=== PATIENT | male | born 1945 | race Caucasian/White ===

== ENCOUNTER 2017-07-17 19:35 | Observation (INO) | payer OTHER, BC ==
[~2017-07-17] VITALS: Ht 172.7 cm; Wt 64.2 kg
[~2017-07-17 19:35] MED LIST: ACET325T96 PO; ASPI-232 PO; ATOR-26 PO; CHOL100010 PO; CLOP1TAB15 PO; CRG3125 PO; LISI-729 PO; NTRGSL4 SL; OMEG10007 PO; PANT40TA PO
--- NOTE | 2017-07-17 20:17 | EMERGENCY ROOM VISIT NOTE ---
History Report prepared by Luis Ablertoibrafael: Leslie Banuelos Under the Supervision of: Dr. Luis Enrique Burden D.O. First contact with patient: 19:48 Chief Complaint: CONFUSION Stated Complaint: CONFUSED EARLIER TODAY Nursing Triage Summary: Acute confusion at 1300, last 15-20 minutes without reccurance. Denies vision problems, weakness, numbness, gait abnormality during this time. Currently asymptomatic, no recent illnesses. History of Present Illness The patient is a 71 year old male who presents to the Emergency Room with complaints of an episode of confusion occurring this afternoon. The patient was doing work when he had difficulty thinking and recalling things. He notes he had trouble recalling passwords or remembering files where he had information which is abnormal for him. After the episode, he took a 15 minute break before trying to read the newspaper. Fifteen minutes after the episode, he had no difficulty reading the newspaper. Later in the afternoon, the patient was a referee for a soccer game, where he with no difficulty or reoccurrences of confusion. The patient believes he had a stroke. He notes loose bowels for the past two days which occurs periodically at baseline for him. Pt denies headache , change in vision, fevers, chest pain, weakness, numbness, vision changes, shortness of breath, nausea, vomiting, diarrhea, pain with urination, and melena. The patient has a history of a heart attack. Source of History: patient Onset: this afternoon Position: other (generalized) Quality: other (confusion) Timing: other (episode) Associated Symptoms: No headache, No chest pain, No SOB, No nausea, No vomiting, No urinary symptoms, No weakness, No numbness Note: Pt denies any vision changes. Review of Systems See HPI for pertinent positives & negatives. A total of 10 systems reviewed and were otherwise negative. Past Medical & Surgical Medical Problems: (1) Altered mental status (2) No Known Active Medical Problems Surgical Problems: (1) History of appendectomy (2) History of tonsillectomy (3) History of vasectomy Family History Cancer Heart disease Lung disease Social History Smoking Status: Never Smoker Alcohol Use: occasionally Marital Status: Housing Status: lives with significant other Occupation Status: retired Current/Historical Medications Scheduled Aspirin (Aspir-81), 81 MG PO DAILY Atorvastatin (Atorvastatin Calcium), 20 MG PO DAILY Carvedilol (Carvedilol), 3.125 MG PO BID Cholecalciferol (Vitamin D), 1,000 INTER.UNIT PO DAILY Cimetidine (Cimetidine), 200 MG PO BID Fish Oil ([place]-3), 500 MG PO DAILY Losartan Potassium (Losartan Potassium), 25 MG PO DAILY Scheduled PRN Nitroglycerin (Nitrostat), 0.4 MG SL UD PRN for Chest Pain Allergies Coded Allergies: No Known Allergies (Unverified , 07/17/17) Physical Exam Vital Signs Date Time Temp Pulse Resp B/P (MAP) Pulse Ox O2 Delivery O2 Flow Rate FiO2 07/18/17 00:44 64 07/17/17 23:07 137/85 07/17/17 23:05 62 98 07/17/17 22:50 64 20 100 07/17/17 22:35 63 20 96 07/17/17 22:20 62 12 99 07/17/17 22:15 67 18 99 07/17/17 22:01 165/103 07/17/17 22:00 68 15 98 07/17/17 21:40 68 26 07/17/17 21:31 165/103 07/17/17 21:25 69 24 07/17/17 21:10 69 15 07/17/17 21:01 123/81 07/17/17 20:55 55 13 07/17/17 20:47 141/85 07/17/17 20:35 56 16 99 07/17/17 20:20 59 100 Room Air 07/17/17 20:09 64 07/17/17 20:01 115/69 07/17/17 19:37 36.6 67 16 164/76 100 Room Air Physical Exam GENERAL: alert, well appearing, well nourished, no distress, non-toxic EYE EXAM: normal conjunctiva, PERRL and EOM's grossly intact OROPHARYNX: no exudate, no erythema, lips, buccal mucosa, and tongue normal and mucous membranes are moist NECK: supple, no nuchal rigidity, no adenopathy, non-tender LUNGS: Clear to auscultation. Normal chest wall mechanics HEART: no murmurs, S1 normal and S2 normal ABDOMEN: abdomen soft, non-tender, normo-active bowel sounds, no masses, no rebound or guarding. BACK: Back is symmetrical on inspection and there is no deformity, no midline tenderness, no CVA tenderness. SKIN: no rashes and no bruising UPPER EXTREMITIES: upper extremities are grossly normal. LOWER EXTREMITIES: No pitting edema. NEURO EXAM: Normal sensorium, cranial nerves II-XII intact, normal speech, no weakness of arms, no weakness of legs. No drift. Finger to nose intact. Sensation intact. Rapid alternating movements of upper extremities intact. Medical Decision & Procedures ER Provider Diagnostic Interpretation: Radiology results as stated below per my review and the radiologist's interpretation: SINGLE VIEW CHEST FINDINGS: An AP, portable, upright chest radiograph is compared to study dated 09/15/2014. The examination is degraded by portable technique and patient rotation. The patient is status post midline sternotomy. The heart is enlarged and there is atherosclerotic calcification of the thoracic aorta. The pulmonary vasculature is noncongested. Chronic obstructive thickening is similar to previous. No airspace consolidation or pleural effusion is identified. No pneumothorax is seen. The skeletal structures are osteopenic. The bony thorax is grossly intact. IMPRESSION: Cardiomegaly with no acute cardiopulmonary abnormality. Electronically signed by: Jamie Galaviz M.D. CT SCAN OF THE BRAIN WITHOUT IV CONTRAST FINDINGS: Brain parenchyma: There are age-related involutional changes noting mild subcortical and periventricular microangiopathic change. There is no hemorrhage, mass effect, or evidence of acute territorial ischemia by CT criteria. Gutierrez-white matter is preserved. No extra-axial fluid collection is seen. Ventricles, sulci, cisterns: Prominent secondary to involutional change. Intracranial vasculature: There is atherosclerotic calcification of the cavernous carotid and vertebral arteries. Calvarium: Unremarkable. Sinuses and mastoids: The visualized paranasal sinuses are clear. The mastoid air cells are well pneumatized. Orbits: The bony orbits are grossly intact. There are bilateral ocular lens implants. IMPRESSION: There is no hemorrhage, mass effect, or evidence of acute territorial ischemia by CT criteria. Electronically signed by: Jamie Galaviz M.D. Laboratory Results 07/17/17 20:27 Red Blood Count 4.68, Mean Corpuscular Volume 86.5, Mean Corpuscular Hemoglobin 28.8, Mean Corpuscular Hemoglobin Concent 33.3, Mean Platelet Volume 10.4, Neutrophils (%) (Auto) 53.0, Lymphocytes (%) (Auto) 36.9, Monocytes (%) (Auto) 8.9, Eosinophils (%) (Auto) 0.8, Basophils (%) (Auto) 0.1, Neutrophils # (Auto) 4.79, Lymphocytes # (Auto) 3.33, Monocytes # (Auto) 0.80, Eosinophils # (Auto) 0.07, Basophils # (Auto) 0.01 07/17/17 20:27 Test 07/17/17 20:27 07/17/17 21:45 White Blood Count 9.03 K/uL (4.8-10.8) Red Blood Count 4.68 M/uL (4.7-6.1) Hemoglobin 13.5 g/dL (14.0-18.0) Hematocrit 40.5 % (42-52) Mean Corpuscular Volume 86.5 fL (80-100) Mean Corpuscular Hemoglobin 28.8 pg (25-34) Mean Corpuscular Hemoglobin Concent 33.3 g/dl (32-36) Platelet Count 197 K/uL (130-400) Mean Platelet Volume 10.4 fL (7.4-10.4) Neutrophils (%) (Auto) 53.0 % Lymphocytes (%) (Auto) 36.9 % Monocytes (%) (Auto) 8.9 % Eosinophils (%) (Auto) 0.8 % Basophils (%) (Auto) 0.1 % Neutrophils # (Auto) 4.79 K/uL (1.4-6.5) Lymphocytes # (Auto) 3.33 K/uL (1.2-3.4) Monocytes # (Auto) 0.80 K/uL (0.11-0.59) Eosinophils # (Auto) 0.07 K/uL (0-0.5) Basophils # (Auto) 0.01 K/uL (0-0.2) RDW Standard Deviation 41.7 fL (36.4-46.3) RDW Coefficient of Variation 13.1 % (11.5-14.5) Immature Granulocyte % (Auto) 0.3 % Immature Granulocyte # (Auto) 0.03 K/uL (0.00-0.02) Anion Gap 6.0 mmol/L (3-11) Est Creatinine Clear Calc Drug Dose 46.6 ml/min Estimated GFR () 63.2 Estimated GFR (Non- 54.5 BUN/Creatinine Ratio 14.7 (10-20) Calcium Level 8.9 mg/dl (8.5-10.1) Magnesium Level 2.1 mg/dl (1.8-2.4) Total Bilirubin 0.6 mg/dl (0.2-1) Direct Bilirubin 0.2 mg/dl (0-0.2) Aspartate Amino Transf (AST/SGOT) 24 U/L (15-37) Alanine Aminotransferase (ALT/SGPT) 22 U/L (12-78) Alkaline Phosphatase 133 U/L (45-117) Troponin I < 0.015 ng/ml (0-0.045) Total Protein 6.7 gm/dl (6.4-8.2) Albumin 3.7 gm/dl (3.4-5.0) Thyroid Stimulating Hormone (TSH) 5.640 uIu/ml (0.300-4.500) Free Thyroxine 0.94 ng/dl (0.80-1.60) Urine Color YELLOW Urine Appearance CLEAR (CLEAR) Urine pH 7.0 (4.5-7.5) Urine Specific [place] 1.005 (1.000-1.030) Urine Protein NEG (NEG) Urine Glucose (UA) NEG (NEG) Urine Ketones NEG (NEG) Urine Occult Blood NEG (NEG) Urine Nitrite NEG (NEG) Urine Bilirubin NEG (NEG) Urine Urobilinogen NEG (NEG) Urine Leukocyte Esterase NEG (NEG) Urine WBC (Auto) 0 /hpf (0-5) Urine RBC (Auto) 0-4 /hpf (0-4) Urine Hyaline Casts (Auto) 0 /lpf (0-5) Urine Epithelial Cells (Auto) 5-10 /lpf (0-5) Urine Bacteria (Auto) NEG (NEG) Laboratory results per my review. ECG Indication: other (confusion) Rate (beats per minute): 61 Rhythm: sinus rhythm Findings: Q waves (Anterior and spetal), T-wave inversion (Anterior and septal) , left axis deviation Comparison ECG Date: 09/15/14 Change: Inverted T-wave new ED Course ED COURSE: Vital signs were reviewed and showed hypertensive The patients medical record was reviewed The above diagnostic studies were performed and reviewed. ED treatments and interventions as stated above. 2004: The patient was evaluated in room B7. A complete history and physical examination was performed. 2223: Upon reevaluation, the patient is resting. I discussed the findings and the treatment plan with the patient. He expresses agreement and understanding. [facility] The patient will be evaluated for further management. Based on the patients age, coexisting illnesses, exam and lab findings the decision to treat as an inpatient was made. The patient remained stable while under my care. The patient will be evaluated for further management. Medical Decision Differential diagnoses includes but is not limited to toxic, metabolic, infectious, traumatic, cardiac, neurologic, hematologic, psychiatric and inflammatory etiologies. Patient is a 71-year-old male that presents to ER for a 15 minute episode of confusion. He has trouble explaining what exactly occurred but he notes he could not remember things that he typically could. He noticed no focal deficit. He was able to read without difficulty. CBC able BMP, LFTs, bilirubin and troponin were unremarkable. EKG was reviewed and did show new flipped T waves. Patient denied any chest pain. CT head was unremarkable. Chest x-ray unremarkable. I did not believe that this was a TIA. With the EKG changes and his history I felt it was reasonable to observe him overnight. Discussed with internal medicine and they agreed. Medication Reconcilliation Current Medication List: was personally reviewed by me Blood Pressure Screening Patient's blood pressure: Elevated blood pressure Blood pressure disposition: Elevated BP felt to be situational Consults Time Called: 2219 Consulting Physician: Dr. Jj Returned Call: 2222 I reviewed the patient's case with Dr. Jj. He will evaluate the patient for further management. Impression Primary Impression: Confusion Additional Impression: EKG changes Scribe Attestation The scribe's documentation has been prepared under my direction and personally reviewed by me in its entirety. I confirm that the note above accurately reflects all work, treatment, procedures, and medical decision making performed by me. Departure Information Dispostion Being Evaluated By Hospitalist Referrals Jaleel Lowe III, M.D. (PCP) Patient Instructions My [facility] Problem Qualifiers
[2017-07-17] MEDS ORDERED: CZR25 PO (20:23)
[2017-07-17] MEDS ORDERED: CARV3.122 PO (20:23)
[2017-07-17] MEDS ORDERED: LPT/20 PO (20:23)
[2017-07-17] MEDS ORDERED: CIME200T4 PO (20:23)
[2017-07-17 20:36] LABS: BASO % 0.1 %; BASO ABS # 0.01 K/uL (0-0.2); COMPLETE YES; EOS % 0.8 %; HEMATOCRIT 40.5 % (42-52); IG% 0.3 %; LYMPH % 36.9 %; LYMPH ABS # 3.33 K/uL (1.2-3.4); MEAN CELL VOLUME 86.5 fL (80-100); MEAN CORPUSCULAR HEMOGLOBIN 28.8 pg (25-34); MEAN CORPUSCULAR HGB CONC 33.3 g/dl (32-36); MEAN PLATELET VOLUME 10.4 fL (7.4-10.4); MONO % 8.9 %; PLATELET COUNT 197 K/uL (130-400); RED BLOOD COUNT 4.68 M/uL (4.7-6.1); WHITE BLOOD COUNT 9.03 K/uL (4.8-10.8)
--- NOTE | 2017-07-17 20:53 | DIAGNOSTIC IMAGING REPORT ---
CT SCAN OF THE BRAIN WITHOUT IV CONTRAST CLINICAL HISTORY: Change in mental status. COMPARISON STUDY: No priors. TECHNIQUE: Unenhanced axial CT scan of the brain is performed from the vertex to the skull base. CT DOSE: 712.55 mGy.cm FINDINGS: Brain parenchyma: There are age-related involutional changes noting mild subcortical and periventricular microangiopathic change. There is no hemorrhage, mass effect, or evidence of acute territorial ischemia by CT criteria. Gutierrez-white matter is preserved. No extra-axial fluid collection is seen. Ventricles, sulci, cisterns: Prominent secondary to involutional change. Intracranial vasculature: There is atherosclerotic calcification of the cavernous carotid and vertebral arteries. Calvarium: Unremarkable. Sinuses and mastoids: The visualized paranasal sinuses are clear. The mastoid air cells are well pneumatized. Orbits: The bony orbits are grossly intact. There are bilateral ocular lens implants. IMPRESSION: There is no hemorrhage, mass effect, or evidence of acute territorial ischemia by CT criteria. Electronically signed by: Jamie Galaviz M.D. 07/17/2017 8:52 PM Dictated Date/Time: 07/17/2017 8:50 PM
[2017-07-17 21:01] LABS: ALT/SGPT 22 U/L (12-78); BLOOD UREA NITROGEN 19 mg/dl (7-18); BUN/CREATININE RATIO 14.7 (10-20); CALCIUM 8.9 mg/dl (8.5-10.1); CARBON DIOXIDE 29 mmol/L (21-32); CHLORIDE 105 mmol/L (98-107); GLUCOSE 88 mg/dl (70-99); POTASSIUM 4.6 mmol/L (3.5-5.1); SODIUM 140 mmol/L (136-145)
[2017-07-17 21:08] LABS: ALKALINE PHOSPHATASE 133 U/L (45-117); AST/SGOT 24 U/L (15-37)
--- NOTE | 2017-07-17 21:26 | DIAGNOSTIC IMAGING REPORT ---
SINGLE VIEW CHEST CLINICAL HISTORY: Strokelike symptoms. FINDINGS: An AP, portable, upright chest radiograph is compared to study dated 09/15/2014. The examination is degraded by portable technique and patient rotation. The patient is status post midline sternotomy. The heart is enlarged and there is atherosclerotic calcification of the thoracic aorta. The pulmonary vasculature is noncongested. Chronic obstructive thickening is similar to previous. No airspace consolidation or pleural effusion is identified. No pneumothorax is seen. The skeletal structures are osteopenic. The bony thorax is grossly intact. IMPRESSION: Cardiomegaly with no acute cardiopulmonary abnormality. Electronically signed by: Jamie Galaviz M.D. 07/17/2017 9:25 PM Dictated Date/Time: 07/17/2017 9:24 PM
[2017-07-17 22:23] LABS: URINE APPEARANCE CLEAR (CLEAR); URINE BILIRUBIN NEG (NEG); URINE COLOR YELLOW; URINE NITRITE NEG (NEG); URINE SPECIFIC GRAVITY 1.005 (1.000-1.030); UROBILINOGEN NEG (NEG); ZZUR CULT IF INDIC CLEAN CATCH NO
[2017-07-17 22:24] LABS: MANUAL MICROSCOPIC REQUIRED? NO; REVIEW REQ? NO
[2017-07-17 23:22] LABS: MAGNESIUM 2.1 mg/dl (1.8-2.4)
[2017-07-18] MEDS ORDERED: ATORVASTATIN 20 MG TAB PO ONE (01:03)
[2017-07-18] MEDS ORDERED: CIMETIDINE 400 MG TAB PO ONE (01:03)
[2017-07-18] MEDS ORDERED: ONDANSETRON INJ 2 MG/ML 2 ML VIAL IV PRN (01:15)
[2017-07-18] MEDS ORDERED: LORAZEPAM 2 MG/ML 1 ML VIAL IV PRN (01:15)
[2017-07-18] MEDS ORDERED: ACETAMINOPHEN 325 MG TAB PO PRN (01:15)
[2017-07-18] MEDS ORDERED: NITROGLYCERIN 0.4 MG SL PER TAB CHARGE SL PRN ×2 (01:15)
[2017-07-18] MEDS ORDERED: OXYCODONE/ACETAMINOPHEN 5-325 TAB PO PRN (01:15)
[2017-07-18] MEDS ORDERED: SODIUM CHLORIDE 0.9% 500ML 500 ML IV ONE (02:30)
[2017-07-18 03:19] VITALS: BP 153/94; PULSE 61; TEMP 36.5; O2SAT 98; Ht 172.7 cm; Wt 64.2 kg
[2017-07-18] MEDS ORDERED: IV FLUIDS COMPLETED PRN (04:30)
--- NOTE | 2017-07-18 06:50 | DIAGNOSTIC IMAGING REPORT ---
MRI OF THE BRAIN WITHOUT CONTRAST CLINICAL HISTORY: transient amnesia COMPARISON STUDY: None. FINDINGS: Sagittal T1, axial diffusion, proton density and T2 weighted axial, coronal FLAIR, and axial T1-weighted images were acquired. No intra or extra-axial mass lesions are visualized Axial diffusion-weighted images reveal no evidence of acute or subacute infarction. There is no evidence of ventricular dilatation. Proton density T2-weighted and FLAIR images reveal scattered foci of increased T2 signal within the white matter, likely on a small vessel basis. There are no abnormal flow voids. IMPRESSION: 1. No acute intracranial findings 2. No evidence of acute or subacute infarction 3. No evidence of intracranial mass on this noncontrast study. Electronically signed by: Laz Richardson M.D. 07/18/2017 6:49 AM Dictated Date/Time: 07/18/2017 6:48 AM
[2017-07-18 07:03] LABS: BASO % 0.1 %; BASO ABS # 0.01 K/uL (0-0.2); COMPLETE YES; EOS % 1.4 %; HEMATOCRIT 43.1 % (42-52); IG% 0.2 %; LYMPH % 39.8 %; MEAN CELL VOLUME 86.4 fL (80-100); MEAN CORPUSCULAR HEMOGLOBIN 27.7 pg (25-34); MEAN PLATELET VOLUME 10.6 fL (7.4-10.4); MONO % 7.4 %; NEUT % 51.1 %; PLATELET COUNT 186 K/uL (130-400); RED BLOOD COUNT 4.99 M/uL (4.7-6.1); WHITE BLOOD COUNT 8.29 K/uL (4.8-10.8)
[2017-07-18 07:10] LABS: INR 0.9 (0.9-1.1); PROTHROMBIN TIME (PATIENT) 10.1 SECONDS (9.0-12.0)
--- NOTE | 2017-07-18 07:19 | DIAGNOSTIC IMAGING REPORT ---
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 TECHNIQUE: MR angiography of the head was performed without the use of intravenous contrast using 3-D [id number] technique. 3-D volumetric and/or maximum intensity projection (MIP) images were subsequently reconstructed for review. IV contrast: None.. COMPARISON: MR brain performed the same day. FINDINGS: Anterior circulation including the intracranial portions of the internal carotid arteries, anterior and middle cerebral arteries, and anterior communicating artery patent. Posterior circulation demonstrates a right dominant vertebral artery. Both vertebral arteries contribute to the basilar artery. Superior cerebellar and posterior cerebral arteries patent. origin of the right posterior cerebral artery. 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 No evidence of aneurysm, significant stenosis, or focal vessel occlusion. IMPRESSION: 1. No significant stenosis, aneurysm, or focal vessel occlusion. Electronically signed by: Ricardo Barnes M.D. 07/18/2017 7:18 AM Dictated Date/Time: 07/18/2017 7:11 AM
[2017-07-18 07:35] LABS: BLOOD UREA NITROGEN 17 mg/dl (7-18); BUN/CREATININE RATIO 15.2 (10-20); CARBON DIOXIDE 30 mmol/L (21-32); CHLORIDE 108 mmol/L (98-107); GLUCOSE 86 mg/dl (70-99); SODIUM 143 mmol/L (136-145)
[2017-07-18 07:52] VITALS: BP_SYST 127; BP_SYST 138; BP_SYST 150; BP_DIAS 77; BP_DIAS 81; BP_DIAS 85; PULSE 57; PULSE 59; PULSE 60; TEMP 36.5; O2SAT 99
[2017-07-18 08:05] VITALS: PULSE 64
--- NOTE | 2017-07-18 08:43 | HISTORY & PHYSICAL EXAMINATION ---
DATE OF ADMISSION: 07/18/2017 PRIMARY CARE DOCTOR: Dr. Lowe. CHIEF COMPLAINT: Confusion, forgetfulness. HISTORY OF PRESENT ILLNESS: History is obtained from the patient and records. Medical history is significant for chronic systolic heart failure secondary to ischemic cardiomyopathy, EF of 45% from 2D echo November 2014, status post CABG, hypertension, hyperlipidemia, history of LV thrombus as per records, chronic anemia (baseline hemoglobin of 13). Recent confinement last August 2014 for acute coronary syndrome. Patient was found to have triple vessel disease on cardiac cath. Patient was transferred to [facility] for [facility]G. Yesterday, the patient was working on stuff at home when he had difficulty thinking recalling things for about 15 minutes, could not recall passwords, etc. No previous episodes. No chest pain, no shortness of breath, no headache. Few days' history of loose stools, improving. No abdominal pain. Brought to the Emergency Room. MEDICAL HISTORY: As above. SURGERIES: He has had CABG, appendectomy, cataract surgery, tonsil removal, hernia surgery. HOME MEDICATIONS: Include, losartan, carvedilol, aspirin, loperamide, atorvastatin. ALLERGIES: No known drug allergies. FAMILY HISTORY: Heart disease. PERSONAL AND SOCIAL HISTORY: Nonsmoker, no chronic intake of alcoholic beverages, manages a farm. REVIEW OF SYSTEMS: As per HPI, all other ROS negative. PHYSICAL EXAMINATION: VITAL SIGNS: Blood pressure was initially 167/100 later 137/81, pulse rate 62, RR 20, temperature 36.6, sats 100 on room air. GENERAL: Noted to be comfortable, no respiratory distress. SKIN: Pallor. HEENT: Pale palpebral conjunctivae. Dry mucosa. NECK: No JVD. Supple. CHEST: Clear to auscultation. HEART: Regular rate and rhythm. ABDOMEN: Soft. EXTREMITIES: No edema, no tenderness. NEUROLOGIC: No gross focality. LABORATORY DATA: Hemoglobin was noted to be 13.5, platelets 187. Sodium 140, potassium 4.6, chloride 105, CO2 of 29, BUN 90, creatinine 1.3, glucose was noted to be 88. IMAGING DATA: CT of the head, no acute pathology. Chest x-ray showed cardiomegaly. EKG as per my interpretation, rate 60, normal sinus rhythm, LAD, LAFB LVH, also noted T-wave inversion on anterolateral leads. ASSESSMENT: 1. Transient forgetfulness rule out transient ischemic attack, atypical seizure. 2. Chronic systolic heart failure secondary to ischemic cardiomyopathy, EF of 40-45% (2015 TTE). The patient is euvolemic. 3. HTN, stable 4. Coronary artery disease status post coronary artery bypass surgery. 5. Chronic anemia, hemoglobin at baseline. PLAN: Observation PCU. MRI/MRA of brain. EEG Neurology consult RE transient forgetfulness Further eval and management as per Neurology. DVT prophylaxis with Lovenox subQ. Full code. MTDD
[2017-07-18] MEDS ORDERED: ENOXAPARIN 30 MG/0.3 ML SYR SC SCH (09:00)
[2017-07-18] MEDS ORDERED: CARVEDILOL 3.125 MG TAB PO SCH (09:00)
[2017-07-18] MEDS ORDERED: ASPIRIN 81 MG ECTAB PO SCH (09:00)
[2017-07-18] MEDS ORDERED: LOSARTAN POTASSIUM 25 MG TAB PO SCH (09:00)
[2017-07-18] MEDS ORDERED: CIMETIDINE 400 MG TAB PO SCH (09:00)
[2017-07-18 11:30] VITALS: BP 118/71; PULSE 57; TEMP 36.7; O2SAT 97
--- NOTE | 2017-07-18 14:31 | Neurology Consultation ---
Neurology Consultation Date of Consultation: Jul 18, 2017. Attending Physician: William Arce M.D. Primary Care Physician: Jaleel Lowe III, M.D. Reason for Consultation: transient amnesia History of Present Illness Source: patient, spouse, hospital records Sandra is a 71 year old male who has a PMH- CAD status post CABG, chronic systolic heart failure secondary to ischemic cardiomyopathy, post CABG-2004, HTN , DL, chronic anemia, baseline hemoglobin of 13. ACS 2013. He was at home yesterday and found it difficulty to remember his passwords and where to find documents in the computer. he went downstairs and was having a problem making a sandwich which he states he was slower. This episode lasted about 20 minutes and then completely resolved. he never had a episode like this in the past. 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 His wanted him to come to the hospital to be evaluated so he consented after the soccer games. denies CP, SOB, abdominal pain, sick confinement, N, V, slurred speech or swallow issues, falls, head injury, vision changes, tinnitus he does have but thats from known hearing loss. He is on a aspirin 81 mg daily. Past Medical/Surgical History Medical Problems: (1) Confusion Status: Acute Social History Smoking Status: Never smoker Marital Status: Housing Status: lives with significant other Occupation Status: retired Allergies Coded Allergies: No Known Allergies (Unverified , 07/17/17) Current Inpatient Medications Current Inpatient Medications Medications (Trade) Dose Ordered Sig/Nate Route Start Time Stop Time Status Last Admin Dose Admin Enoxaparin Sodium (Lovenox Inj) 30 mg Q24H SC 07/18/17 09:00 08/17/17 08:59 Acetaminophen (Tylenol Tab) 650 mg Q4H PRN PO 07/18/17 01:15 08/17/17 01:14 Nitroglycerin (Nitrostat Tab) 0.4 mg UD PRN SL 07/18/17 01:15 08/17/17 01:14 Aspirin (Ecotrin Tab) 81 mg DAILY PO 07/18/17 09:00 08/17/17 08:59 07/18/17 08:03 81 MG Atorvastatin Calcium (Lipitor Tab) 20 mg HS PO 07/18/17 21:00 08/17/17 20:59 Carvedilol (Coreg Tab) 3.125 mg BID PO 07/18/17 09:00 08/17/17 08:59 07/18/17 08:03 3.125 MG Losartan Potassium (coZAAR TAB) 25 mg DAILY PO 07/18/17 09:00 08/17/17 08:59 07/18/17 08:02 25 MG Cimetidine (Tagamet Tab) 200 mg BID PO 07/18/17 09:00 08/17/17 08:59 07/18/17 08:03 200 MG Ondansetron HCl (Zofran Inj) 4 mg Q6H PRN IV 07/18/17 01:15 08/17/17 01:14 Lorazepam (Ativan Inj) 0.5 mg Q4H PRN IV 07/18/17 01:15 08/17/17 01:14 Oxycodone/ Acetaminophen (Percocet 5-325mg Tab) 1 tab Q6H PRN PO 07/18/17 01:15 08/01/17 01:14 Miscellaneous (Iv Fluids Completed) 1 ea PRN PRN N/A 07/18/17 04:30 07/18/18 04:29 07/18/17 10:30 1 EA Physical Exam Vital Signs (Past 24 Hrs): Date Time Temp Pulse Resp B/P (MAP) Pulse Ox O2 Delivery O2 Flow Rate FiO2 07/18/17 12:00 Room Air 07/18/17 11:30 36.7 57 18 118/71 (87) 97 Room Air 07/18/17 08:05 64 07/18/17 08:00 Room Air 07/18/17 07:52 36.5 59 18 150/85 (106) 99 Room Air 60 138/77 (97) 57 127/81 (96) 07/18/17 03:19 36.5 61 16 153/94 98 Room Air 07/18/17 01:12 70 24 97 07/18/17 01:01 107/65 07/18/17 00:57 69 22 97 07/18/17 00:44 64 07/18/17 00:42 62 24 98 07/18/17 00:31 158/84 07/18/17 00:27 65 16 98 07/18/17 00:12 61 22 97 07/18/17 00:01 130/81 07/17/17 23:57 63 16 98 07/17/17 23:42 63 14 96 07/17/17 23:31 128/77 07/17/17 23:27 60 17 96 07/17/17 23:12 61 15 98 07/17/17 23:07 137/85 07/17/17 23:05 62 98 07/17/17 22:50 64 20 100 07/17/17 22:35 63 20 96 07/17/17 22:20 62 12 99 07/17/17 22:15 67 18 99 07/17/17 22:01 165/103 07/17/17 22:00 68 15 98 07/17/17 21:40 68 26 07/17/17 21:31 165/103 07/17/17 21:25 69 24 07/17/17 21:10 69 15 07/17/17 21:01 123/81 07/17/17 20:55 55 13 07/17/17 20:47 141/85 07/17/17 20:35 56 16 99 07/17/17 20:20 59 100 Room Air 07/17/17 20:09 64 07/17/17 20:01 115/69 07/17/17 19:37 36.6 67 16 164/76 100 Room Air Physical Exam: Constitutional: appearance nourished, healthy and normal Ears, Nose, Mouth and Throat: mucous membranes moist, no injection and skin normal, eyes normal Cardiovascular: normal S-1 and S-2 and regular rate and rhythm Respiratory: clear to auscultation (CTA) and no rales, rhonchi or wheeze Musculoskeletal: no peripheral edema and good distal pulses Skin: no stigmata of neurocutaneous disease noted and normal and intact Eyes: extraocular muscles intact (EOMI) and pupils equal, round and reactive to light (PERRL) NEUROLOGIC EXAMINATION: Mental status: Alert and interactive Oriented to full date and location, [facility], president T[place], 2017 Oriented to person Speech fluent with no evidence of aphasia Cranial Nerves smile eye brow raise symmetric, tongue midline Reflexes: Deep tendon reflexes were symmetrical and graded 2/5. Plantar responses were flexor. Sensory: light touch or cool touch Coordination: finger to nose without bi pass Gait/Stance: Posture normal. Gait normal: with steady with steps, base, turning, heel and toe walking and tandem gait. Motor: Negative for pronator drift of out stretched arms with eyes closed. Strength: biceps triceps hand college coach 5/5 bilaterally, hip flex plantar flex ext Laboratory Results Past 24 Hours: 07/18/17 06:37 Red Blood Count 4.99, Mean Corpuscular Volume 86.4, Mean Corpuscular Hemoglobin 27.7, Mean Corpuscular Hemoglobin Concent 32.0, Mean Platelet Volume 10.6, Neutrophils (%) (Auto) 51.1, Lymphocytes (%) (Auto) 39.8, Monocytes (%) (Auto) 7.4, Eosinophils (%) (Auto) 1.4, Basophils (%) (Auto) 0.1, Neutrophils # (Auto) 4.23, Lymphocytes # (Auto) 3.30, Monocytes # (Auto) 0.61, Eosinophils # (Auto) 0.12, Basophils # (Auto) 0.01 07/18/17 06:37 Test 07/17/17 20:27 07/17/17 21:45 07/18/17 06:37 07/18/17 12:32 Magnesium Level 2.1 mg/dl (1.8-2.4) Total Bilirubin 0.6 mg/dl (0.2-1) Direct Bilirubin 0.2 mg/dl (0-0.2) Aspartate Amino Transf (AST/SGOT) 24 U/L (15-37) Alanine Aminotransferase (ALT/SGPT) 22 U/L (12-78) Alkaline Phosphatase 133 U/L (45-117) Total Protein 6.7 gm/dl (6.4-8.2) Albumin 3.7 gm/dl (3.4-5.0) Thyroid Stimulating Hormone (TSH) 5.640 uIu/ml (0.300-4.500) Free Thyroxine 0.94 ng/dl (0.80-1.60) Urine Color YELLOW Urine Appearance CLEAR (CLEAR) Urine pH 7.0 (4.5-7.5) Urine Specific [place] 1.005 (1.000-1.030) Urine Protein NEG (NEG) Urine Glucose (UA) NEG (NEG) Urine Ketones NEG (NEG) Urine Occult Blood NEG (NEG) Urine Nitrite NEG (NEG) Urine Bilirubin NEG (NEG) Urine Urobilinogen NEG (NEG) Urine Leukocyte Esterase NEG (NEG) Urine WBC (Auto) 0 /hpf (0-5) Urine RBC (Auto) 0-4 /hpf (0-4) Urine Hyaline Casts (Auto) 0 /lpf (0-5) Urine Epithelial Cells (Auto) 5-10 /lpf (0-5) Urine Bacteria (Auto) NEG (NEG) White Blood Count 8.29 K/uL (4.8-10.8) Red Blood Count 4.99 M/uL (4.7-6.1) Hemoglobin 13.8 g/dL (14.0-18.0) Hematocrit 43.1 % (42-52) Mean Corpuscular Volume 86.4 fL (80-100) Mean Corpuscular Hemoglobin 27.7 pg (25-34) Mean Corpuscular Hemoglobin Concent 32.0 g/dl (32-36) Platelet Count 186 K/uL (130-400) Mean Platelet Volume 10.6 fL (7.4-10.4) Neutrophils (%) (Auto) 51.1 % Lymphocytes (%) (Auto) 39.8 % Monocytes (%) (Auto) 7.4 % Eosinophils (%) (Auto) 1.4 % Basophils (%) (Auto) 0.1 % Neutrophils # (Auto) 4.23 K/uL (1.4-6.5) Lymphocytes # (Auto) 3.30 K/uL (1.2-3.4) Monocytes # (Auto) 0.61 K/uL (0.11-0.59) Eosinophils # (Auto) 0.12 K/uL (0-0.5) Basophils # (Auto) 0.01 K/uL (0-0.2) RDW Standard Deviation 41.3 fL (36.4-46.3) RDW Coefficient of Variation 13.0 % (11.5-14.5) Immature Granulocyte % (Auto) 0.2 % Immature Granulocyte # (Auto) 0.02 K/uL (0.00-0.02) Prothrombin Time 10.1 SECONDS (9.0-12.0) Prothromb Time International Ratio 0.9 (0.9-1.1) Anion Gap 5.0 mmol/L (3-11) Est Creatinine Clear Calc Drug Dose 55.1 ml/min Estimated GFR () 77.3 Estimated GFR (Non- 66.7 BUN/Creatinine Ratio 15.2 (10-20) Calcium Level 9.0 mg/dl (8.5-10.1) Troponin I < 0.015 ng/ml (0-0.045) Imaging MRA head- No significant stenosis, aneurysm, or focal vessel occlusion. MRI brain without- No acute intracranial findings No evidence of acute or subacute infarction No evidence of intracranial mass on this noncontrast study. Impression 71 year old male with mental slowness and recall issues complex cardiac history Plan 1. TTE completed and cardiology aware of results. 2. no signs of CVA on MRI or occasion on MRA 3. no current PT/OT or speech therapy needs 4. could add plavix 75 mg for dual therapy will discuss with cardiology once echo is completed but for neurology perspective aspirin would be continued no need at this time for dual therapy further recommendations to follow I have seen and discussed above patient with Dr Jaleel Diaz, neurology Patient seen and interiewd and examined Imaging reports and images reviewed and the preliminary echo report reviewed event in question could have been a vascular event but if sow the deficits were transient and imaging shows no acute events or source for emboli other than the echo with the intraventricular mass with hypokinetic segment that could well be a clot Follow with cardiology is planned and in place and he is felt to be safe to discharge for now Suspect he may well end up on coumadin but unless he has more events that are not related or potentially related to the cardiomyopathy neurology does not need to see him regularly Jaleel Diaz MD
[2017-07-18] MEDS ORDERED: PERFLUTREN LIPID MICROSPHERE (DEFINITY) IV ONE (14:58)
--- NOTE | 2017-07-18 15:52 | DIAGNOSTIC IMAGING REPORT ---
ULTRASOUND OF THE CAROTID ARTERIES CLINICAL HISTORY: Presyncope. COMPARISON STUDY: No priors. TECHNIQUE: Real-time, grayscale, and color Doppler sonography of the carotid arteries is performed. Images are reviewed in the transverse and longitudinal planes. FINDINGS: Blood pressure in the right arm measures 119/76 and blood pressure in the left arm measures 124/75. The carotid arteries are patent bilaterally and demonstrate antegrade flow. There is minimal atherosclerotic plaque identified. Normal doppler arterial waveforms are seen throughout. Velocity measurements are listed below. Common carotid peak systolic velocity (cm/sec): RIGHT: 109 LEFT: 114 ICA proximal peak systolic velocity (cm/sec): RIGHT: 95 LEFT: 83 ICA mid peak systolic velocity (cm/sec): RIGHT: 73 LEFT: 77 ICA distal peak systolic velocity (cm/sec): RIGHT: 69 LEFT: 74 ICA/CC peak systolic ratio: RIGHT: 0.7 LEFT: 0.6 Antegrade flow was shown in the vertebral arteries. The external carotid arteries are patent. IMPRESSION: 1. There is no sonographic evidence of hemodynamically significant stenosis in the right or left carotid arterial system. 2. Antegrade flow is shown in the vertebral arteries. Electronically signed by: Jamie Galaviz M.D. 07/18/2017 3:50 PM Dictated Date/Time: 07/18/2017 3:49 PM
--- NOTE | 2017-07-18 16:06 | Progress Note ---
Internal Med Progress Note Date of Service: Jul 18, 2017. Provider Documentation: SUBJECTIVE: Since hospital admission: Denies changes in vision Denies headache Denies nausea Denies vomiting Denies chest pain Denies shortness of breath Denies abdominal pain Denies diarrhea Denies dysuria OBJECTIVE: PHYSICAL EXAMINATION: GENERAL: Noted to be comfortable, no respiratory distress. HEENT: normocephalic, atraumatic, EOMI, no facial muscle weakness NECK: No JVD. trachea midline CHEST: Clear to auscultation bilaterally HEART: Regular rate and rhythm. no appreciable murmurs audible. ABDOMEN: Soft. nontender. + bowel sounds EXTREMITIES: No edema, no tenderness. strength 5/5 throughout extremities NEUROLOGIC: No gross focality. ASSESSMENT & PLAN: Medical history is significant for CAD status post CABG, chronic systolic heart failure secondary to ischemic cardiomyopathy, EF of 40 to 45 % from 2D echo November 2014, history of LV thrombus as per records, chronic anemia, baseline hemoglobin of 13,hypertension, hyperlipidemia. 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 Denied motor or sensory deficits. Subsequently was able to attend soccer game without events.Came to the emergency room at the urging of family member. Hospital Course SINGLE VIEW CHEST FINDINGS: An AP, portable, upright chest radiograph is compared to study dated 09/15/2014. The examination is degraded by portable technique and patient rotation. The patient is status post midline sternotomy. The heart is enlarged and there is atherosclerotic calcification of the thoracic aorta. The pulmonary vasculature is noncongested. Chronic obstructive thickening is similar to previous. No airspace consolidation or pleural effusion is identified. No pneumothorax is seen. The skeletal structures are osteopenic. The bony thorax is grossly intact. IMPRESSION: Cardiomegaly with no acute cardiopulmonary abnormality. Electronically signed by: Jamie Galaviz M.D. 07/17/2017 9:25 PM Dictated Date/Time: 07/17/2017 9:[address] SCAN OF THE BRAIN WITHOUT IV CONTRAST FINDINGS: Brain parenchyma: There are age-related involutional changes noting mild subcortical and periventricular microangiopathic change. There is no hemorrhage, mass effect, or evidence of acute territorial ischemia by CT criteria. Gutierrez- white matter is preserved. No extra-axial fluid collection is seen. Ventricles , sulci, cisterns: Prominent secondary to involutional change. Intracranial vasculature: There is atherosclerotic calcification of the cavernous carotid and vertebral arteries. Calvarium: Unremarkable. Sinuses and mastoids: The visualized paranasal sinuses are clear. The mastoid air cells are well pneumatized. Orbits: The bony orbits are grossly intact. There are bilateral ocular lens implants. IMPRESSION: There is no hemorrhage, mass effect, or evidence of acute territorial ischemia by CT criteria. Electronically signed by: Jamie Galaviz M.D. 07/17/2017 8:52 PM Dictated Date/Time: 07/17/2017 8:50 PM MRA HEAD WITHOUT CONTRAST FINDINGS: Anterior circulation including the intracranial portions of the internal carotid arteries, anterior and middle cerebral arteries, and anterior communicating artery patent. Posterior circulation demonstrates a right dominant vertebral artery. Both vertebral arteries contribute to the basilar artery. Superior cerebellar and posterior cerebral arteries patent. origin of the right posterior cerebral artery. 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 No evidence of aneurysm, significant stenosis, or focal vessel occlusion. IMPRESSION: 1. No significant stenosis, aneurysm, or focal vessel occlusion. Electronically signed by: Ricardo Barnes M.D. 07/18/2017 7:18 AM Dictated Date/Time: 07/18/2017 7:11 AM MRI OF THE BRAIN WITHOUT CONTRAST FINDINGS: Sagittal T1, axial diffusion, proton density and T2 weighted axial, coronal FLAIR, and axial T1-weighted images were acquired. No intra or extra-axial mass lesions are visualized Axial diffusion-weighted images reveal no evidence of acute or subacute infarction. There is no evidence of ventricular dilatation. Proton density T2-weighted and FLAIR images reveal scattered foci of increased T2 signal within the white matter, likely on a small vessel basis. There are no abnormal flow voids. IMPRESSION: 1. No acute intracranial findings 2. No evidence of acute or subacute infarction 3. No evidence of intracranial mass on this noncontrast study. Electronically signed by: Laz Richardson M.D. 07/18/2017 6:49 AM Dictated Date/Time: 07/18/2017 6:48 AM ULTRASOUND OF THE CAROTID ARTERIES FINDINGS:Blood pressure in the right arm measures 119/76 and blood pressure in the left arm measures 124/75. The carotid arteries are patent bilaterally and demonstrate antegrade flow. There is minimal atherosclerotic plaque identified. Normal doppler arterial waveforms are seen throughout. Velocity measurements are listed below. Common carotid peak systolic velocity (cm/sec): RIGHT: 109 LEFT: 114 ICA proximal peak systolic velocity (cm/sec): RIGHT: 95 LEFT: 83 ICA mid peak systolic velocity (cm/sec): RIGHT: 73 LEFT: 77 ICA distal peak systolic velocity (cm/sec): RIGHT: 69 LEFT: 74 ICA/CC peak systolic ratio: RIGHT: 0.7 LEFT: 0.6 Antegrade flow was shown in the vertebral arteries. The external carotid arteries are patent. IMPRESSION: 1. There is no sonographic evidence of hemodynamically significant stenosis in the right or left carotid arterial system. 2. Antegrade flow is shown in the vertebral arteries. No telemetry events for arrhythmia while on telemetry monitoring Troponins negative x 3 Patient was able to ambulate in the hallway on his own power without neurological or cardiac respiratory symptoms. Neurology has evaluated the patient and no strong evidence supporting TIA or Seizure Patient had abnormal transthoracic echo. The chemical research worker reading the report concerned for new mass on the echo that was not seen before. Full report pending. The interpreting chemical research worker has informed patient's outpatient chemical research worker Dr. Grier who will coordinate patient's followup and possible cardiac MRI as outpatient. Vital Signs: Date Time Temp Pulse Resp B/P (MAP) Pulse Ox O2 Delivery O2 Flow Rate FiO2 07/18/17 15:35 Room Air 07/18/17 12:00 Room Air 07/18/17 11:30 36.7 57 18 118/71 (87) 97 Room Air 07/18/17 08:05 64 07/18/17 08:00 Room Air 07/18/17 07:52 36.5 59 18 150/85 (106) 99 Room Air 60 138/77 (97) 57 127/81 (96) 07/18/17 03:19 36.5 61 16 153/94 98 Room Air 07/18/17 01:12 70 24 97 07/18/17 01:01 107/65 07/18/17 00:57 69 22 97 07/18/17 00:44 64 07/18/17 00:42 62 24 98 07/18/17 00:31 158/84 07/18/17 00:27 65 16 98 07/18/17 00:12 61 22 97 07/18/17 00:01 130/81 07/17/17 23:57 63 16 98 07/17/17 23:42 63 14 96 07/17/17 23:31 128/77 07/17/17 23:27 60 17 96 07/17/17 23:12 61 15 98 07/17/17 23:07 137/85 07/17/17 23:05 62 98 07/17/17 22:50 64 20 100 07/17/17 22:35 63 20 96 07/17/17 22:20 62 12 99 07/17/17 22:15 67 18 99 07/17/17 22:01 165/103 07/17/17 22:00 68 15 98 07/17/17 21:40 68 26 07/17/17 21:31 165/103 07/17/17 21:25 69 24 07/17/17 21:10 69 15 07/17/17 21:01 123/81 07/17/17 20:55 55 13 07/17/17 20:47 141/85 07/17/17 20:35 56 16 99 07/17/17 20:20 59 100 Room Air 07/17/17 20:09 64 07/17/17 20:01 115/69 07/17/17 19:37 36.6 67 16 164/76 100 Room Air Lab Results: Results Past 24 Hours Test 07/17/17 20:27 07/17/17 21:45 07/18/17 06:37 07/18/17 12:32 Range/Units White Blood Count 9.03 8.29 4.8-10.8 K/uL Red Blood Count 4.68 4.99 4.7-6.1 M/uL Hemoglobin 13.5 13.8 14.0-18.0 g/dL Hematocrit 40.5 43.1 42-52 % Mean Corpuscular Volume 86.5 86.4 80-100 fL Mean Corpuscular Hemoglobin 28.8 27.7 25-34 pg Mean Corpuscular Hemoglobin Concent 33.3 32.0 32-36 g/dl Platelet Count 197 186 130-400 K/uL Mean Platelet Volume 10.4 10.6 7.4-10.4 fL Neutrophils (%) (Auto) 53.0 51.1 % Lymphocytes (%) (Auto) 36.9 39.8 % Monocytes (%) (Auto) 8.9 7.4 % Eosinophils (%) (Auto) 0.8 1.4 % Basophils (%) (Auto) 0.1 0.1 % Neutrophils # (Auto) 4.79 4.23 1.4-6.5 K/uL Lymphocytes # (Auto) 3.33 3.30 1.2-3.4 K/uL Monocytes # (Auto) 0.80 0.61 0.11-0.59 K/uL Eosinophils # (Auto) 0.07 0.12 0-0.5 K/uL Basophils # (Auto) 0.01 0.01 0-0.2 K/uL RDW Standard Deviation 41.7 41.3 36.4-46.3 fL RDW Coefficient of Variation 13.1 13.0 11.5-14.5 % Immature Granulocyte % (Auto) 0.3 0.2 % Immature Granulocyte # (Auto) 0.03 0.02 0.00-0.02 K/uL Sodium Level 140 143 136-145 mmol/L Potassium Level 4.6 5.0 3.5-5.1 mmol/L Chloride Level 105 108 98-107 mmol/L Carbon Dioxide Level 29 30 21-32 mmol/L Anion Gap 6.0 5.0 3-11 mmol/L Blood Urea Nitrogen 19 17 7-18 mg/dl Creatinine 1.30 1.10 0.60-1.40 mg/dl Est Creatinine Clear Calc Drug Dose 46.6 55.1 ml/min Estimated GFR () 63.2 77.3 Estimated GFR (Non- 54.5 66.7 BUN/Creatinine Ratio 14.7 15.2 10-20 Random Glucose 88 86 70-99 mg/dl Calcium Level 8.9 9.0 8.5-10.1 mg/dl Magnesium Level 2.1 1.8-2.4 mg/dl Total Bilirubin 0.6 0.2-1 mg/dl Direct Bilirubin 0.2 0-0.2 mg/dl Aspartate Amino Transf (AST/SGOT) 24 15-37 U/L Alanine Aminotransferase (ALT/SGPT) 22 12-78 U/L Alkaline Phosphatase 133 45-117 U/L Troponin I < 0.015 < 0.015 < 0.015 0-0.045 ng/ml Total Protein 6.7 6.4-8.2 gm/dl Albumin 3.7 3.4-5.0 gm/dl Thyroid Stimulating Hormone (TSH) 5.640 0.300-4.500 uIu/ml Free Thyroxine 0.94 0.80-1.60 ng/dl Urine Color YELLOW Urine Appearance CLEAR CLEAR Urine pH 7.0 4.5-7.5 Urine Specific [place] 1.005 1.000-1.030 Urine Protein NEG NEG Urine Glucose (UA) NEG NEG Urine Ketones NEG NEG Urine Occult Blood NEG NEG Urine Nitrite NEG NEG Urine Bilirubin NEG NEG Urine Urobilinogen NEG NEG Urine Leukocyte Esterase NEG NEG Urine WBC (Auto) 0 0-5 /hpf Urine RBC (Auto) 0-4 0-4 /hpf Urine Hyaline Casts (Auto) 0 0-5 /lpf Urine Epithelial Cells (Auto) 5-10 0-5 /lpf Urine Bacteria (Auto) NEG NEG Prothrombin Time 10.1 9.0-12.0 SECONDS Prothromb Time International Ratio 0.9 0.9-1.1
--- NOTE | 2017-07-18 17:29 | Discharge Instructions ---
Discharge Instructions Date of Service Jul 18, 2017. Admission Reason for Admission: Altered Mental Status Discharge Discharge Diagnosis / Problem: left ventricle mass, altered mental status Discharge Goals Goal(s): Diagnostic testing Activity Recommendations Activity Limitations: per Instructions/Follow-up section Lifting Limitations: until after follow-up appointment Exercise/Sports Limitations: until after follow-up appointment Shower/Bathe: no limitations . Instructions / Follow-Up Instructions / Follow-Up Patient to follow up with Dr. Grier, environmental technician who will read the Transthoracic echo report for the patient please seek immediate medical attention if you develop symptoms of confusion, slurred speech, muscle weakness, problems with balance or coordination, chest pain, shortness of breath Current Hospital Diet Patient's current hospital diet: AHA Diet (Heart Healthy) Discharge Diet Recommended Diet: Regular Diet Procedures Procedures Performed: Transthoracic echo, MRI/MRA brain, head CT, Chest X ray, Carotid Ultrasound Pending Studies Studies pending at discharge: no Medical Emergencies . Who to Call and When: Medical Emergencies: If at any time you feel your situation is an emergency, please call 911 immediately. . Non-Emergent Contact Non-Emergency issues call your: Flying Squad Salesperson . . "Provider Documentation" section prepared by William Arce. . VTE Core Measure Inpt VTE Proph given/why not?: Enoxaparin (Lovenox)SQ
--- NOTE | 2017-07-18 17:34 | Discharge Summary ---
Discharge Summary Date of Service Jul 18, 2017. Discharge Summary Admission Date: Jul 18, 2017 at 00:17 Discharge Date: Jul 18, 2017 Discharge Disposition: Home Principal Diagnosis: left ventricle mass Secondary Diagnoses/Problems: altered mental status Procedures: TTE, US carotid, MRI/MRA brain, head CT, CXR Pending Studies/Follow-Up: Patient to follow up with Dr. Grier, bale stacker who will read the Transthoracic echo report for the patient Medication Reconciliation Continued Medications: Aspirin (Aspir-81) 81 Mg Tab 81 MG PO DAILY Atorvastatin (Atorvastatin Calcium) 20 Mg Tab 20 MG PO DAILY, #90 Carvedilol (Carvedilol) 3.125 Mg Tab 3.125 MG PO BID Cholecalciferol (Vitamin D) 1,000 Inter.unit Tab 1000 INTER.UNIT PO DAILY, TAB Cimetidine (Cimetidine) 200 Mg Tab 200 MG PO BID, #60 Fish Oil ([place]-3) 1 Ea Cap 500 MG PO DAILY, CAP Losartan Potassium (Losartan Potassium) 25 Mg Tab 25 MG PO DAILY, #90 Nitroglycerin (Nitrostat) 0.4 Mg/1 Tab Subl 0.4 MG SL UD PRN for Chest Pain Admission Information HPI (per Admitting provider): History is obtained from the patient and records. Medical history is significant for chronic systolic heart failure secondary to ischemic cardiomyopathy, EF of 45% from 2D echo November 2014, status post CABG, hypertension, hyperlipidemia, history of LV thrombus as per records, chronic anemia (baseline hemoglobin of 13). Recent confinement last August 2014 for acute coronary syndrome. Patient was found to have triple vessel disease on cardiac cath. Patient was transferred to [facility] for CABG. Yesterday, the patient was working on stuff at home when he had difficulty thinking recalling things for about 15 minutes, could not recall passwords, etc. No previous episodes. No chest pain, no shortness of breath, no headache. Few days' history of loose stools, improving. No abdominal pain. Brought to the Emergency Room. Physical Exam (per Admitting): PHYSICAL EXAMINATION: VITAL SIGNS: Blood pressure was initially 167/100 later 137/81, pulse rate 62, RR 20, temperature 36.6, sats 100 on room air. GENERAL: Noted to be comfortable, no respiratory distress. SKIN: Pallor. HEENT: Pale palpebral conjunctivae. Dry mucosa. NECK: No JVD. Supple. CHEST: Clear to auscultation. HEART: Regular rate and rhythm. ABDOMEN: Soft. EXTREMITIES: No edema, no tenderness. NEUROLOGIC: No gross focality. Hospital Course Medical history is significant for CAD status post CABG, chronic systolic heart failure secondary to ischemic cardiomyopathy, EF of 40 to 45 % from 2D echo November 2014, history of LV thrombus as per records, chronic anemia, baseline hemoglobin of 13,hypertension, hyperlipidemia. 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 Denied motor or sensory deficits. Subsequently was able to attend soccer game without events.Came to the emergency room at the urging of family member. Hospital Course SINGLE VIEW CHEST FINDINGS: An AP, portable, upright chest radiograph is compared to study dated 09/15/2014. The examination is degraded by portable technique and patient rotation. The patient is status post midline sternotomy. The heart is enlarged and there is atherosclerotic calcification of the thoracic aorta. The pulmonary vasculature is noncongested. Chronic obstructive thickening is similar to previous. No airspace consolidation or pleural effusion is identified. No pneumothorax is seen. The skeletal structures are osteopenic. The bony thorax is grossly intact. IMPRESSION: Cardiomegaly with no acute cardiopulmonary abnormality. Electronically signed by: Jamie Galaviz M.D. 07/17/2017 9:25 PM Dictated Date/Time: 07/17/2017 9:[address] SCAN OF THE BRAIN WITHOUT IV CONTRAST FINDINGS: Brain parenchyma: There are age-related involutional changes noting mild subcortical and periventricular microangiopathic change. There is no hemorrhage, mass effect, or evidence of acute territorial ischemia by CT criteria. Gutierrez- white matter is preserved. No extra-axial fluid collection is seen. Ventricles , sulci, cisterns: Prominent secondary to involutional change. Intracranial vasculature: There is atherosclerotic calcification of the cavernous carotid and vertebral arteries. Calvarium: Unremarkable. Sinuses and mastoids: The visualized paranasal sinuses are clear. The mastoid air cells are well pneumatized. Orbits: The bony orbits are grossly intact. There are bilateral ocular lens implants. IMPRESSION: There is no hemorrhage, mass effect, or evidence of acute territorial ischemia by CT criteria. Electronically signed by: Jamie Galaviz M.D. 07/17/2017 8:52 PM Dictated Date/Time: 07/17/2017 8:50 PM MRA HEAD WITHOUT CONTRAST FINDINGS: Anterior circulation including the intracranial portions of the internal carotid arteries, anterior and middle cerebral arteries, and anterior communicating artery patent. Posterior circulation demonstrates a right dominant vertebral artery. Both vertebral arteries contribute to the basilar artery. Superior cerebellar and posterior cerebral arteries patent. origin of the right posterior cerebral artery. 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 No evidence of aneurysm, significant stenosis, or focal vessel occlusion. IMPRESSION: 1. No significant stenosis, aneurysm, or focal vessel occlusion. Electronically signed by: Ricardo Barnes M.D. 07/18/2017 7:18 AM Dictated Date/Time: 07/18/2017 7:11 AM MRI OF THE BRAIN WITHOUT CONTRAST FINDINGS: Sagittal T1, axial diffusion, proton density and T2 weighted axial, coronal FLAIR, and axial T1-weighted images were acquired. No intra or extra-axial mass lesions are visualized Axial diffusion-weighted images reveal no evidence of acute or subacute infarction. There is no evidence of ventricular dilatation. Proton density T2-weighted and FLAIR images reveal scattered foci of increased T2 signal within the white matter, likely on a small vessel basis. There are no abnormal flow voids. IMPRESSION: 1. No acute intracranial findings 2. No evidence of acute or subacute infarction 3. No evidence of intracranial mass on this noncontrast study. Electronically signed by: Laz Richardson M.D. 07/18/2017 6:49 AM Dictated Date/Time: 07/18/2017 6:48 AM ULTRASOUND OF THE CAROTID ARTERIES FINDINGS:Blood pressure in the right arm measures 119/76 and blood pressure in the left arm measures 124/75. The carotid arteries are patent bilaterally and demonstrate antegrade flow. There is minimal atherosclerotic plaque identified. Normal doppler arterial waveforms are seen throughout. Velocity measurements are listed below. Common carotid peak systolic velocity (cm/sec): RIGHT: 109 LEFT: 114 ICA proximal peak systolic velocity (cm/sec): RIGHT: 95 LEFT: 83 ICA mid peak systolic velocity (cm/sec): RIGHT: 73 LEFT: 77 ICA distal peak systolic velocity (cm/sec): RIGHT: 69 LEFT: 74 ICA/CC peak systolic ratio: RIGHT: 0.7 LEFT: 0.6 Antegrade flow was shown in the vertebral arteries. The external carotid arteries are patent. IMPRESSION: 1. There is no sonographic evidence of hemodynamically significant stenosis in the right or left carotid arterial system. 2. Antegrade flow is shown in the vertebral arteries. No telemetry events for arrhythmia while on telemetry monitoring Troponins negative x 3 Patient was able to ambulate in the hallway on his own power without neurological or cardiac respiratory symptoms. Neurology has evaluated the patient and no strong evidence supporting TIA or Seizure Patient had abnormal transthoracic echo. The bale stacker Dr. Frederick reading the echo report concerned for new mass of left ventricle near the apex of the heart that was not seen before. Full report pending. The interpreting bale stacker has informed patient's outpatient bale stacker Dr. Grier who will coordinate patient's followup and possible cardiac MRI as outpatient. Total time spent on discharge = This includes examination of the patient, discharge planning, medication reconciliation, and communication with other providers. Discharge Instructions please seek immediate medical attention if you develop symptoms of confusion, slurred speech, muscle weakness, problems with balance or coordination, chest pain, shortness of breath
[2017-07-18 17:44] VITALS: BP 118/71; PULSE 57; TEMP 36.7; O2SAT 97
[2017-07-18] MEDS ORDERED: ATORVASTATIN 20 MG TAB PO SCH (21:00)
--- NOTE | 2017-07-19 05:22 | ELECTROENCEPHALOGRAPH REPORT ---
REQUESTING PHYSICIAN: Cal Bradford MD CLINICAL DIAGNOSIS: Transient confusion and amnesia. ELECTROENCEPHALOGRAM DIAGNOSIS: Essentially normal during wakefulness. DESCRIPTION OF TRACING: This EEG was done as a bedside recording with simultaneous video analysis of patient's movement and behavior. This is of excellent technical quality with few or no muscle movement artifacts. No photic stimulation hyperventilation was performed and drowsiness and light sleep were not recorded. During wakefulness, there is evidence for normal appearing background rhythm in the alpha range of up to 9 Hz of maximum frequency and 30 microvolts of maximum amplitude. This is maximum in posterior head regions and bilaterally symmetrical. Polymorphic mid frequency theta activity is seen over all head regions without clear focal or regional predominance. Anterior head region maximum bilaterally symmetrical low voltage fast activity in the beta range is present. At no time during the waking tracing is there evidence for potentially epileptogenic activity in the form of polyspike or spike wave bursts, focal sharp waves or focal spikes. INTERPRETATION: This EEG is essentially normal during wakefulness without evidence for focal or generalized encephalopathy and without evidence for potentially epileptogenic activity.
--- NOTE | 2017-07-25 09:51 | ECHOCARDIOGRAM REPORT ---
*NOTICE TO RECEIVING [employer] This information is strictly Confidential and protected under [place] law. [place] law prohibits you from making any further disclosure of this information unless further disclosure is expressly permitted by the written consent of the person to whom it pertains or is authorized by law. A general authorization for the release of medical or other information is not sufficient for this purpose. Hospital accepts no responsibility if the information is made available to any other person, INCLUDING THE PATIENT. Interpretation Summary * Name: ELLIE GALDAMEZ Study Date: 07/18/2017 02:08 PM BP: 118/71 mmHg * Patient Location: [facility]\S\N278\S\1 HR: 57 * : 1945 (M/d/yyyy) Gender: Male Height: 68 in * Age: 71 yrs Ethnicity: CA Weight: 141 lb * Ordering Physician: William Arce * Referring Physician: Self, Referred * Performed By: Jaleesa Krishnan RDCS * * Reason For Study: PRESYNCOPE * BSA: 1.8 m2 * -- Conclusions -- * The left ventricle is normal in size. * There is normal left ventricular wall thickness. * Ejection Fraction = 40-45%. * Left ventricular systolic function is mildly reduced. * The mid anteroseptum, mid to distal septum, distal anterior wall and apex are akinetic. * There is a well circumscribed echo dense lesion attached to a false tendon in the LV apex measuring 1.3 x 1.2 cm. With initial contrast images the lesion does not appear to enhance most c/w thrombus and less likely a tumor. * The right ventricle is normal in size and function. * The right ventricular systolic function is normal as assessed by tricuspid annular plane systolic excursion (TAPSE) (normal >1.5 cm). * Aortic valve sclerosis mild, without significant aortic valvular stenosis. * Right ventricular systolic pressure is normal. * There is aortic root sclerosis/calcification. * Recommend cardiac MRI to differentiate LV thrombus vs tumor. Procedure Details * A contrast injection of Definity was performed to improve assessment of LV function. * Contrast was injected into an intravenous site in the right arm. * One vial of Definity ultrasound contrast was diluted in normal saline to a total volume of 10 ml. A total of '2' ml of solution was administered during imaging. * Lot # [id number] of Definity utilized for procedure. * Expiration date aug 16. * The attending nurse who injected the contrast agent was MANOLO KHAN RN. Left Ventricle * The left ventricle is normal in size. * There is normal left ventricular wall thickness. * Ejection Fraction = 40-45%. * Left ventricular systolic function is mildly reduced. * The mid anteroseptum, mid to distal septum, distal anterior wall and apex are akinetic. There is a well circumscribed echo dense lesion attached to a false tendon in the LV apex measuring 1.3 x 1.2 cm. With initial contrast images the lesion does not appear to enhance most c/w thrombus and less likely a tumor. Right Ventricle * The right ventricle is normal in size and function. * The right ventricular systolic function is normal as assessed by tricuspid annular plane systolic excursion (TAPSE) (normal >1.5 cm). Atria * The left atrium is mildly dilated. * The right atrium is moderately dilated. Mitral Valve * The mitral valve is grossly normal. * There is mild mitral regurgitation. Tricuspid Valve * The tricuspid valve is not well visualized, but is grossly normal. * There is trace tricuspid regurgitation. * Right ventricular systolic pressure is normal. Aortic Valve * Aortic valve sclerosis mild, without significant aortic valvular stenosis. Pulmonic Valve * The pulmonic valve is not well seen, but is grossly normal. Great Vessels * There is aortic root sclerosis/calcification. * The aortic root is normal size. Pericardium/Pleural * There is no pericardial effusion. Great Vessels * Normal inferior vena cava size and collapsability with sniff indicates a normal right atrial pressure of 3 mmHg Left Ventricular Diastolic Function * Indeterminate LA pressures. MMode 2D Measurements and Calculations IVSd 1.2 cm IVSs 1.5 cm LVIDd 4.4 cm LVIDs 3.4 cm LVPWd 1.2 cm LVPWs 1.3 cm IVS/LVPW 0.94 FS 22.3 % EDV(Teich) 86.1 ml ESV(Teich) 47.2 ml EF(Teich) 45.2 % EDV(cubed) 83.3 ml ESV(cubed) 39.0 ml EF(cubed) 53.1 % % IVS thick 29.0 % % LVPW thick 6.8 % LV mass(C)d 189.8 grams LV mass(C)dI 107.7 grams/m\S\2 LV mass(C)s 168.4 grams LV mass(C)sI 95.6 grams/m\S\2 SV(Teich) 39.0 ml SI(Teich) 22.1 ml/m\S\2 SV(cubed) 44.2 ml SI(cubed) 25.1 ml/m\S\2 Ao root diam 3.3 cm Ao root area 8.5 cm\S\2 LA dimension 4.0 cm LA/Ao 1.2 LVAd ap4 29.1 cm\S\2 LVLd ap4 8.2 cm EDV(MOD-sp4) 88.5 ml EDV(sp4-el) 88.4 ml LVAs ap4 21.4 cm\S\2 LVLs ap4 7.5 cm ESV(MOD-sp4) 49.5 ml ESV(sp4-el) 52.0 ml EF(MOD-sp4) 44.0 % EF(sp4-el) 41.2 % LVAd ap2 31.8 cm\S\2 LVLd ap2 8.0 cm EDV(MOD-sp2) 106.2 ml EDV(sp2-el) 106.9 ml LVAs ap2 24.0 cm\S\2 LVLs ap2 8.0 cm ESV(MOD-sp2) 62.7 ml ESV(sp2-el) 61.0 ml EF(MOD-sp2) 40.9 % EF(sp2-el) 43.0 % LVLd %diff -1.40 % EDV(MOD-bp) 97.7 ml LVLs %diff 6.4 % ESV(MOD-bp) 54.9 ml EF(MOD-bp) 43.9 % SV(MOD-sp4) 38.9 ml SI(MOD-sp4) 22.1 ml/m\S\2 SV(MOD-sp2) 43.5 ml SI(MOD-sp2) 24.7 ml/m\S\2 SV(MOD-bp) 42.9 ml SI(MOD-bp) 24.3 ml/m\S\2 SV(sp4-el) 36.4 ml SI(sp4-el) 20.6 ml/m\S\2 SV(sp2-el) 45.9 ml SI(sp2-el) 26.1 ml/m\S\2 Doppler Measurements and Calculations MV E max kylah 66.0 cm/sec MV A max kylah 43.7 cm/sec MV E/A 1.5 MV dec time 0.34 sec Ao V2 max 122.2 cm/sec Ao max PG 6.0 mmHg Ao max PG (full) 0.60 mmHg LV V1 max PG 5.4 mmHg LV V1 max 115.9 cm/sec TR max kylah 229.5 cm/sec
== END 2017-07-18 18:13 | disposition home or self-care (01) ==
LOC: C.EDB 19:36 → C.MED 07-18 00:17 → ENRESERV 07-18 00:51
PROVIDERS: ADMIT Internal Medicine; ATTEND Hospitalist
DX: I51.89 Other ill-defined heart diseases (principal); R41.82 Altered mental status, unspecified; I25.5 Ischemic cardiomyopathy; I11.0 Hypertensive heart disease with heart failure; I50.22 Chronic systolic (congestive) heart failure; I25.10 Atherosclerotic heart disease of native coronary artery without angina pectoris; E78.5 Hyperlipidemia, unspecified; D64.9 Anemia, unspecified; Z79.82 Long term (current) use of aspirin; Z79.899 Other long term (current) drug therapy; Z95.1 Presence of aortocoronary bypass graft; I51.7 Cardiomegaly; I70.0 Atherosclerosis of aorta; I77.89 Other specified disorders of arteries and arterioles

== ENCOUNTER 2017-10-19 05:53 | Emergency (ER) | payer OTHER, BC ==
[~2017-10-19] VITALS: Ht 172.7 cm; Wt 61.7 kg
[~2017-10-19 05:53] MED LIST changes: -ACET325T96 PO; -ATOR-26 PO; +CIME200T4 PO; -CLOP1TAB15 PO; +CZR25 PO; -LISI-729 PO; +LPT/20 PO; -PANT40TA PO
[2017-10-19 05:58] VITALS: TEMP 36.4; Ht 172.7 cm; Wt 61.7 kg
[2017-10-19] MEDS ORDERED: PRD150 PO (06:26)
[2017-10-19] MEDS ORDERED: OMEG10007 PO (06:33)
[2017-10-19] MEDS ORDERED: CHOL2000 PO (06:33)
[2017-10-19] MEDS ORDERED: ACETAMINOPHEN 500 MG TAB PO STA (06:56)
[2017-10-19] MEDS ORDERED: TRAMADOL HCL 50 MG TAB PO STA (06:56)
--- NOTE | 2017-10-19 07:08 | EMERGENCY ROOM VISIT NOTE ---
History Report prepared by Madie: Jaleesa Simpson Under the Supervision of: Dr. Toby Alvarez M.D. First contact with patient: 06:31 Chief Complaint: HYPERTENSION Stated Complaint: HIGH BP,ARM PAIN History of Present Illness The patient is a 71 year old white male with a past medical history of hypertension, coronary artery disease, CABG who presents to the ED with a cc of intermittent muscle tightness beginning two months ago. Positive hypertension, left hand numbness. He currently rates his discomfort as a 3/10 in severity. The patient states that in June he was placed on Eloquis. He states that he thought that his muscle aches were due to the Eloquis so he was changed to Pradaxa. The patient states that Tylenol has helped to alleviate his symptoms. He states that last night he woke in extreme pain. The patient states that the pain was alleviated with Tylenol then. He states that his blood pressure was elevated at that time and his left hand went numb. The patient states that he took Nitroglycerin which alleviated his symptoms. He states that he has seen his PCP and F[facility] for his symptoms. Source of History: patient Onset: two months ago Position: other (muscle) Symptom Intensity: 3/10 Quality: other (tightness) Timing: intermittent Associated Symptoms: + numbness (left hand) Note: Associated Symptoms: hypertension Review of Systems See HPI for pertinent positives and negatives. A total of ten systems were reviewed and were otherwise negative. Past Medical & Surgical Medical Problems: (1) Altered mental status (2) CAD (coronary artery disease) (3) Hypertension Surgical Problems: (1) H/O inguinal hernia repair (2) History of appendectomy (3) History of cataract surgery (4) History of tonsillectomy (5) History of vasectomy (6) S/P CABG x 3 (7) S/p cervical laminectomy Family History Cancer BROTHER (prostate CA) Heart disease FATHER (1st [place] in 40's, age 61) GRANDFATHER ( age 40's) GRANDMOTHER ( age 40's) Lung disease Social History Smoking Status: Never Smoker Alcohol Use: occasionally Marital Status: Housing Status: lives with significant other Occupation Status: retired Current/Historical Medications Scheduled Aspirin (Aspir-81), 81 MG PO DAILY Atorvastatin (Atorvastatin Calcium), 20 MG PO DAILY Carvedilol (Carvedilol), 3.125 MG PO BID Cholecalciferol (Vitamin D3), 1 CAP PO DAILY Cimetidine (Cimetidine), 200 MG PO BID Dabigatran Elexilate (Pradaxa), 150 MG PO BID Fish Oil (Ophelia-3), 1 CAP PO DAILY Losartan Potassium (Losartan Potassium), 25 MG PO DAILY Scheduled PRN Nitroglycerin (Nitrostat), 0.4 MG SL UD PRN for Chest Pain Allergies Coded Allergies: No Known Allergies (Unverified , 07/17/17) Physical Exam Vital Signs Date Time Temp Pulse Resp B/P (MAP) Pulse Ox O2 Delivery O2 Flow Rate FiO2 10/19/17 09:00 66 12 110/72 100 Room Air 10/19/17 08:31 111/70 10/19/17 08:30 55 20 10/19/17 08:01 119/77 10/19/17 08:00 56 20 98 10/19/17 07:32 120/74 10/19/17 07:30 55 14 100 10/19/17 07:10 99 Room Air 10/19/17 07:07 60 10/19/17 07:05 55 16 113/68 99 Room Air 10/19/17 05:58 36.4 71 18 116/81 100 Room Air Physical Exam GENERAL: Awake, alert, well-appearing, NAD HENT: Normocephalic, atraumatic. EYES: Normal conjunctiva. Sclera non-icteric. NECK: Supple. No nuchal rigidity. FROM. RESPIRATORY: CTAB, no rhonchi, wheezing, crackles CARDIAC: RRR, no MRG ABDOMEN: Soft, NTND, BS+ MSK: No chest wall TTP, no LE edema, midline sternotomy scar over the chest, mild reproducible pain in the trapezius bilaterally, good flexion and extension at the shoulder elbow and wrist, no sensory deficits. NEURO: GCS 15, CN 2-12 intact, moves all 4s on command SKIN: No rash or jaundice noted. Medical Decision & Procedures ER Provider Diagnostic Interpretation: X-ray: Per my interpretation, radiologist review. CHEST ONE VIEW PORTABLE CLINICAL HISTORY: Chest pain. COMPARISON STUDY: Chest radiograph July 17, 2017. FINDINGS: There are median sternotomy wires and clips from bypass grafting. No pneumothorax or pleural effusion is identified. There is no evidence for pulmonary edema. Moderate cardiomegaly is unchanged. Mild asymmetric right apical opacity is unchanged and favor scarring. IMPRESSION: 1. No acute cardiomegaly findings. 2. Cardiomegaly. Electronically signed by: Dario Steinberg M.D. 10/19/2017 7:15 AM Dictated Date/Time: 10/19/2017 7:14 AM Laboratory Results 10/19/17 07:10 Red Blood Count 4.57, Mean Corpuscular Volume 85.6, Mean Corpuscular Hemoglobin 28.2, Mean Corpuscular Hemoglobin Concent 33.0, Mean Platelet Volume 10.0, Neutrophils (%) (Auto) 61.5, Lymphocytes (%) (Auto) 24.6, Monocytes (%) (Auto) 11.7, Eosinophils (%) (Auto) 1.8, Basophils (%) (Auto) 0.1, Neutrophils # (Auto ) 5.58, Lymphocytes # (Auto) 2.23, Monocytes # (Auto) 1.06, Eosinophils # (Auto ) 0.16, Basophils # (Auto) 0.01 10/19/17 07:10 Test 10/19/17 07:10 White Blood Count 9.07 K/uL (4.8-10.8) Red Blood Count 4.57 M/uL (4.7-6.1) Hemoglobin 12.9 g/dL (14.0-18.0) Hematocrit 39.1 % (42-52) Mean Corpuscular Volume 85.6 fL (80-100) Mean Corpuscular Hemoglobin 28.2 pg (25-34) Mean Corpuscular Hemoglobin Concent 33.0 g/dl (32-36) Platelet Count 257 K/uL (130-400) Mean Platelet Volume 10.0 fL (7.4-10.4) Neutrophils (%) (Auto) 61.5 % Lymphocytes (%) (Auto) 24.6 % Monocytes (%) (Auto) 11.7 % Eosinophils (%) (Auto) 1.8 % Basophils (%) (Auto) 0.1 % Neutrophils # (Auto) 5.58 K/uL (1.4-6.5) Lymphocytes # (Auto) 2.23 K/uL (1.2-3.4) Monocytes # (Auto) 1.06 K/uL (0.11-0.59) Eosinophils # (Auto) 0.16 K/uL (0-0.5) Basophils # (Auto) 0.01 K/uL (0-0.2) RDW Standard Deviation 39.2 fL (36.4-46.3) RDW Coefficient of Variation 12.7 % (11.5-14.5) Immature Granulocyte % (Auto) 0.3 % Immature Granulocyte # (Auto) 0.03 K/uL (0.00-0.02) Prothrombin Time 11.2 SECONDS (9.0-12.0) Prothromb Time International Ratio 1.1 (0.9-1.1) Activated Partial Thromboplast Time 38.0 SECONDS (21.0-31.0) Partial Thromboplastin Ratio 1.5 Anion Gap 6.0 mmol/L (3-11) Est Creatinine Clear Calc Drug Dose 58.3 ml/min Estimated GFR () 86.8 Estimated GFR (Non- 74.9 BUN/Creatinine Ratio 16.4 (10-20) Calcium Level 8.5 mg/dl (8.5-10.1) Phosphorus Level 2.8 mg/dl (2.5-4.9) Magnesium Level 2.3 mg/dl (1.8-2.4) Total Bilirubin 0.8 mg/dl (0.2-1) Direct Bilirubin 0.2 mg/dl (0-0.2) Aspartate Amino Transf (AST/SGOT) 18 U/L (15-37) Alanine Aminotransferase (ALT/SGPT) 19 U/L (12-78) Alkaline Phosphatase 127 U/L (45-117) Troponin I < 0.015 ng/ml (0-0.045) Total Protein 6.9 gm/dl (6.4-8.2) Albumin 3.2 gm/dl (3.4-5.0) Laboratory results reviewed by me Medications Administered Medications (Trade) Dose Ordered Sig/Nate Route Start Time Stop Time Status Last Admin Dose Admin Acetaminophen (Tylenol Tab) 1,000 mg NOW STAT PO 10/19/17 06:56 10/19/17 06:59 DC 10/19/17 07:21 1,000 MG Tramadol HCl (Ultram Tab) 25 mg NOW STAT PO 10/19/17 06:56 10/19/17 06:59 DC 10/19/17 07:20 25 MG ECG Indication: other (hypertension) Rate (beats per minute): 54 Rhythm: sinus bradycardia Findings: Q waves (Inferior), T-wave inversion (diffuse anterior and lateral), other (normal intervals) Comparison ECG Date: 07/18/17 Change: no significant change ED Course 0644: The patient was evaluated in room A12B. A complete history and physical exam was performed. 0803: I reevaluated the patient and he is resting comfortably. I discussed the test results with him and I discussed the treatment plan. He verbalized complete understanding and agreement. He is ready to go home. Medical Decision Triage Nursing notes reviewed. The patient's presentation and history were concerning for atypical chest pain, electrolyte abnormality, medication side effect, radiculopathy. The patient is a 71 year old white male with a past medical history of hypertension, coronary artery disease, CABG who presents to the ED with a cc of intermittent muscle tightness beginning two months ago. Patient was seen and evaluated the bedside. Patient has been complaining of some muscular type pains been ongoing for several months. Patient states he has started with his primary care physician as well as his primary auto striper but without any relief. Patient did recently start a statin to see if this was driven into symptoms. Patient otherwise has been well with the exception of stating that this morning he felt though he had some right hand numbness and that his blood pressure was 140/87 and thus took some nitroglycerin and this dropped to 90/50. He said that this resolved some of the symptoms. Patient did have blood work that was completed along with an EKG and chest x-ray. Patient does not have an elevated white blood cell count. Patient's EKG did show diffuse T-wave inversions anteriorly and laterally with inferior Q waves however this appears essentially unchanged from priors. Patient's chest x-ray did show cardiomegaly without any other acute abnormality. Patient was given pain medication. Patient again had no pain at this time. Patient was told that he should consider physical therapy and that he should continue to see the results of being taken off a statin. Patient was told to listen to his body not perform movements that aggravate or exacerbate his discomfort. Do not believe that the patient has any sort of atypical type symptoms even though he did describe some sort of right hand numbness. Given that he has been having lots of discomfort in his bilateral upper extremities for some time I believe this is more of a chronic issue and not acute. I believe he suitable for outpatient follow-up treatment. Patient was given strict follow-up, discharge, and return precautions. All questions were answered. Patient was deemed suitable for outpatient follow-up at this time. Patient agreed with the plan of care and was safely discharged home. Medication Reconcilliation Current Medication List: was personally reviewed by me Blood Pressure Screening Patient's blood pressure: Normal blood pressure Blood pressure disposition: Did not require urgent referral Impression Primary Impression: Anemia Additional Impression: Muscle cramps Scribe Attestation The scribe's documentation has been prepared under my direction and personally reviewed by me in its entirety. I confirm that the note above accurately reflects all work, treatment, procedures, and medical decision making performed by me. Departure Information Dispostion Home / Self-Care Referrals Jaleel oLwe III, M.D. (PCP) Forms HOME CARE DOCUMENTATION FORM, IMPORTANT VISIT INFORMATION, WORK / SCHOOL INSTRUCTIONS Patient Instructions ED Muscle Pain Leg Cramps, Hypertension [place], [facility] Additional Instructions Please return to the emergency department if you have worsening or recurrent symptoms not amenable to at-home treatment. Please call for a follow-up appointment with her primary care physician. Please take your medications as prescribed. If you have other concerns and/or complaints please feel free to also call your primary care physician's office or return the ED for further evaluation, management, and treatment. You received narcotic or benzodiazepene medication while in the emergency room today. This is an addictive medication that may cause drowziness as well as constipation. Do not drive, operate heavy machinery, or drink alcohol under the influence of this medication. You may take tylenol 1000 mg every 6 hours as needed for pain. You may also try things like BenGay and/or icy hot to help was muscular type pain. Please discuss physical therapy with your primary care physician. Take your medications as prescribed. You have been examined and treated today on an emergency basis only. This is not a substitute for, or an effort to provide, complete comprehensive medical care. It is impossible to recognize and treat all injuries or illnesses in a single emergency department visit. It is therefore important that you follow up closely with [facility], your PCP, and/or your specialist(s). Call as soon as possible for an appointment. Thank you for your time and consideration. I look forward to speaking with you again soon. Please don't hesitate to call us if you have any questions. Problem Qualifiers Primary Impression: Anemia Anemia type: unspecified type Qualified Codes: D64.9 - Anemia, unspecified
[2017-10-19 07:10] VITALS: O2SAT 99
--- NOTE | 2017-10-19 07:16 | DIAGNOSTIC IMAGING REPORT ---
CHEST ONE VIEW PORTABLE CLINICAL HISTORY: Chest pain. COMPARISON STUDY: Chest radiograph July 17, 2017. FINDINGS: There are median sternotomy wires and clips from bypass grafting. No pneumothorax or pleural effusion is identified. There is no evidence for pulmonary edema. Moderate cardiomegaly is unchanged. Mild asymmetric right apical opacity is unchanged and favor scarring. IMPRESSION: 1. No acute cardiomegaly findings. 2. Cardiomegaly. Electronically signed by: Dario Steinberg M.D. 10/19/2017 7:15 AM Dictated Date/Time: 10/19/2017 7:14 AM
[2017-10-19 07:28] LABS: BASO % 0.1 %; BASO ABS # 0.01 K/uL (0-0.2); COMPLETE YES; EOS % 1.8 %; HEMATOCRIT 39.1 % (42-52); IG% 0.3 %; LYMPH % 24.6 %; LYMPH ABS # 2.23 K/uL (1.2-3.4); MEAN CELL VOLUME 85.6 fL (80-100); MEAN CORPUSCULAR HEMOGLOBIN 28.2 pg (25-34); MONO % 11.7 %; NEUT % 61.5 %; PLATELET COUNT 257 K/uL (130-400); RED BLOOD COUNT 4.57 M/uL (4.7-6.1); WHITE BLOOD COUNT 9.07 K/uL (4.8-10.8)
[2017-10-19 07:37] LABS: INR 1.1 (0.9-1.1); PARTIAL THROMBOPLASTIN RATIO 1.5; PROTHROMBIN TIME (PATIENT) 11.2 SECONDS (9.0-12.0)
[2017-10-19 07:47] LABS: ALT/SGPT 19 U/L (12-78); BLOOD UREA NITROGEN 16 mg/dl (7-18); BUN/CREATININE RATIO 16.4 (10-20); CALCIUM 8.5 mg/dl (8.5-10.1); CARBON DIOXIDE 28 mmol/L (21-32); CHLORIDE 104 mmol/L (98-107); GLUCOSE 97 mg/dl (70-99); MAGNESIUM 2.3 mg/dl (1.8-2.4); POTASSIUM 4.4 mmol/L (3.5-5.1); SODIUM 137 mmol/L (136-145)
[2017-10-19 07:53] LABS: ALKALINE PHOSPHATASE 127 U/L (45-117); AST/SGOT 18 U/L (15-37); PHOSPHORUS 2.8 mg/dl (2.5-4.9)
[2017-10-19 09:00] VITALS: BP 110/72; PULSE 66; O2SAT 100
== END 2017-10-19 09:10 | disposition home or self-care (01) ==
LOC: C.EDB 05:55 → C.EDA 09:10
DX: D64.9 Anemia, unspecified (principal); M62.89 Other specified disorders of muscle; R20.2 Paresthesia of skin; I10 Essential (primary) hypertension; I25.10 Atherosclerotic heart disease of native coronary artery without angina pectoris; R94.31 Abnormal electrocardiogram [ECG] [EKG]; Z79.82 Long term (current) use of aspirin; Z82.49 Family history of ischemic heart disease and other diseases of the circulatory system; Z83.6 Family history of other diseases of the respiratory system

== ENCOUNTER 2024-05-06 14:25 | Inpatient (IN) ==
[2024-05-06 16:07] LABS: Base Excess VBG 6.1 mEq/L; HCO3 VBG 34 mmol/L; Oxygen Saturation VBG < 60.0 %; PCO2 VBG 63 mmHg (38-50); PO2 VBG 30 mmHg; pH VBG 7.34 (7.36-7.41)
[2024-05-06 16:27] LABS: Basophils # (auto) 0.06 K/uL (0.00-0.20); Basophils % (auto) 0.3 %; Hemoglobin 13.6 g/dl (14.0-18.0); Immature Granulocytes # (auto) 0.14 K/uL (0.01-0.20); Immature Granulocytes % (auto) 0.7 %; Lymphocytes # (auto) 3.36 K/uL (1.20-3.40); Lymphocytes % (auto) 17.3 %; Mean Corpuscular Hemoglobin 27.5 pg (25.0-34.0); Mean Corpuscular Hgb Conc 31.6 g/dL (32.0-36.0); Mean Platelet Volume 11.4 fL (9.4-12.4); Monocytes # (auto) 1.15 K/uL (0.11-0.59); Monocytes % (auto) 5.9 %; Neutrophils # (auto) 14.49 K/uL (1.40-6.50); Neutrophils % (auto) 74.8 %; Platelet Count 243 K/uL (130-400); RDW Coefficient of Variation 13.6 % (11.5-14.5); RDW Standard Deviation 42.8 fL (36.4-46.3); Red Blood Count 4.94 M/uL (4.70-6.10)
[2024-05-06 16:42] LABS: Albumin Level 3.9 gm/dl (3.4-5.0); BUN Creatinine Ratio 18.2 (10-20); Bilirubin Direct 0.1 mg/dl (0-0.2); Bilirubin,Total 0.5 mg/dl (0.2-1.0); Creatinine Clr Calc Pharmacy 54.9 ml/min; Est GFR (African American) 83.6 ml/min; Est GFR (Non-African American) 72.1 ml/min; Magnesium 2.1 mg/dl (1.7-2.4); Potassium 4.1 mmol/L (3.5-5.1); Total Protein 6.7 gm/dl (6.0-8.3)
[2024-05-06 16:43] LABS: Partial Thromboplastin Ratio 0.9; Partial Thromboplastin Time 25 Seconds (21-31); Prothrombin Time 10.6 Seconds (9.0-12.0)
[2024-05-06 16:48] LABS: Troponin I High Sensitivity 6.8 pg/ml (0-20)
--- NOTE | 2024-05-06 16:51 | CT Scan Report ---
CT head/brain wo con CLINICAL HISTORY: 78 years-old Male with ams. Acutely altered mental status TECHNIQUE: Multiple axial CT images of the head were obtained without contrast. A dose lowering tech nique was utilized adhering to the principles of ALARA. CT DOSE: 625.8 mGy.cm COMPARISON: 07/17/2017 FINDINGS: No acute intracranial hemorrhage, midline shift, intracranial mass, hydrocephalus, or abnormal extra- axial collection. Involutional changes with chronic microvascular ischemic disease. There is a large chronic appearing left MCA infarct with encephalomalacia which is new from the prior study. There is asymmetric ex vacuo ventriculomegaly of the left lateral ventricle. The calvarium is intact. Prior bilateral lens repair. The paranasal sinuses, mastoid air cells, and m iddle ear cavities are clear. IMPRESSION: 1. No acute intracranial abnormality. 2. Large chronic left MCA infarct, new from the 2017 comparison.. ACT 112: Negative or not required by law. The above report was generated using voice recognition software. It may contain grammatical, syntax o r spelling errors. Electronically signed by: Will Lucio M.D. 05/06/2024 4:50 PM
--- NOTE | 2024-05-06 16:54 | XRay Report ---
XR chest 1V portable HISTORY: Sepsis COMPARISON: Chest 10/19/2017. FINDINGS: There are low lung volumes. No pneumothorax. No pleural effusions. The cardiac silhouette r emains mildly enlarged. No evidence for pulmonary edema. There are poststernotomy changes. No acute f ractures. There are patchy bibasilar airspace opacities most pronounced on the left. IMPRESSION: Patchy bibasilar airspace opacities most pronounced on the left. This favors a pneumonia and could be due to prior aspiration. ACT 112: Negative or not required by law. Electronically signed by: Ravi Graham M.D. 05/06/2024 4:53 PM
[2024-05-06] MEDS: DEXTROSE 50% 50 ML SYRINGE IV ONE (17:23)
[2024-05-06] MEDS: PIPERACILLIN/TAZOBACTAM 4.5 GM/120 ML BAG IV ONE (17:23)
--- NOTE | 2024-05-06 17:23 | History & Physical Report ---
Date of Service May 06, 2024 Assessment & Plan (1) Pneumonia: Plan: This is a 78 y/o male with prior left MCA stroke with residual deficits, CAD s/p CABG x 3, ischemic cardiomyopathy, chronic HFrEF, HTN, severe malnutrition, and other history as outlined below who presented to the ED today after an episode of potential seizure activity at home. Work-up in the ED showed patchy bibasilar opacities, worse on the left, likely due to aspiration. Clinical history from pt's family seems to confirm likely aspiration event earlier today. Pt has seen speech therapy previously but was discharged from services earlier this year. - Admit to PCU - Continue Zosyn for antibiotic coverage - Consider repeat speech therapy evaluation for recommendations for conservative management. Family adamant that pt would not want aggressive management - Minced and moist diet - Aspiration precautions - Family would like to consider potential hospice care - will consult palliative care for assistance with symptom management and possible hospice (2) Seizure-like activity: Plan: Increasing frequency of seizure-like activity even with the addition of Keppra - pt missed last neurology f/u appt due to technology issues with the telemed visit. Consult neurology Continue same Keppra dosing for now Seizure precautions (3) Hemiplegia and hemiparesis following cerebral infarction affecting right dom inant side: (4) Hemiplegia and hemiparesis following cerebral infarction affecting left non- dominant side: (5) Dementia: Plan: Chronic, stable Continue outpatient regimen (6) CAD (coronary artery disease): Plan: Chronic, stable continue outpatient meds Plan Pt seen and reviewed with collaborating physician, Dr. Covarrubias. Plan of care discussed and as outlined above. Home medications reconciled with pt's . Pt needs chewable or liquid formulations of medications. Code status: DNR/DNI DVT prophylaxis: on apixaban Admit to PCU for treatment of pneumonia, management of seizure-like activity Saad Davis PA-C History of Present Illness Chief Complaint: seizure Primary Care Provider: Tara Gonzalez MD This is a 78 y/o male with prior left MCA stroke with residual deficits, CAD s/p CABG x 3, ischemic cardiomyopathy, chronic HFrEF, HTN, severe malnutrition, and other history as outlined below who presented to the ED today after an episode of potential seizure activity at home. History was obtained from his and daughter at the bedside due to pt's severe aphasia. His outpatient records including PCP note from December, neurology note from December, and Pain management note from April were reviewed. Pt has a history of large left MCA territory stroke in 2021 due to left MCA thrombus. Residual severe neurologic deficits, right homonymous hemianopsia, severe global aphasia, spastic right hemiplegia, confined to wheelchair. Has exhibited episodes of periodic alteration of awareness and behavioral change, thought likely secondary to focal onset seizures localized to the left cerebral hemisphere. Started on low-dose levetiracetam, which he seemed to be tolerating well as per last neurology note from Dr. Benitez. He has been receiving Botox injections to extremities through pain management to help with the spasticity, which seem to help significantly. Initially after the CVA, he had a PEG tube for swallowing difficulties but this was able to be removed successfully. In December, pt had an episode of choking and probable aspiration that was attributed to missing doses of Baclofen due to supply chain issues or to recent med changes. He has worked with speech therapy at home [facility] Today, pt presents with a possible seizure. This morning he was sleeping then woke up suddenly and started drooling and had rhinorrhea. Then his left arm started twitching and seemed to spasm towards his face, His voice became altered and he was staring into space and not responding. His family noted that he was pale, diaphoretic, and cool to touch. His body was also more stiff and difficult to move than usual. Towards the end of the episode, he vomited liquid material. The episode lasted at least an hour before pt seemed to be back to baseline. When EMS arrived, his pulseox was 85% and his fingers were bluish at the tips. His notes that pt had an episode this morning where he seemed to choke on his phlegm and she thinks may have aspirated then or when he vomited. Over the last few weeks, they have noted that patient has been more tired and sleeping more than usual. He has had more seizure episodes than he was having previously. They have also noted that patient has been having more episodes of coughing with eating recently though no overt choking episodes. Allergies Allergy/AdvReac Type Severity Reaction Status Date / Time No Known Allergies Allergy Unverified 05/01/24 10:50 Home Medications Medication Instructions Recorded Confirmed Type apixaban 5 mg tablet 5 mg PO BID 06/26/23 05/06/24 History levothyroxine 50 mcg capsule 50 mcg PO DAILY 06/26/23 05/06/24 History modafinil 100 mg tablet (Provigil) 100 mg PO DAILY 06/26/23 05/06/24 History zinc acetate 50 mg (zinc) capsule 50 mg PO DAILY 06/26/23 05/06/24 History memantine 5 mg tablet 5 mg PO BID #60 tabs 08/30/23 05/06/24 Rx duloxetine 30 mg capsule,delayed 30 mg PO DAILY 10/16/23 05/06/24 History release levetiracetam 500 mg/5 mL (5 mL) 500 mg (5 mL) PO BID 30 days #300 01/11/24 05/06/24 Rx oral solution mL atorvastatin 20 mg tablet (Lipitor) 20 mg PO DAILY 01/16/24 05/06/24 History carvedilol 3.125 mg tablet 6.25 mg PO BID 01/16/24 05/06/24 History nitroglycerin 0.4 mg sublingual 0.4 mg sublingual Q5M PRN Chest 01/16/24 05/06/24 History tablet (Nitrostat) Pain Lactobacillus acidophilus 1 tab PO DAILY 05/06/24 05/06/24 History acetaminophen 500 mg/15 mL oral 1,000 mg PO Q6H PRN Pain 05/06/24 05/06/24 History liquid ascorbic acid (vitamin C) 500 mg 500 mg PO DAILY 05/06/24 05/06/24 History chewable tablet (Vitamin C) baclofen 20 mg tablet 20 mg PO TID spasms 05/06/24 05/06/24 History cetirizine 10 mg chewable tablet 10 mg PO DAILY 05/06/24 05/06/24 History cholecalciferol (vitamin D3) 50 50 mcg PO DAILY 05/06/24 05/06/24 History mcg (2,000 unit) chewable tablet dimethicone 1 %-zinc oxide 10 1 applic topical TID PRN Rash 05/06/24 05/06/24 History %-vit A and D-aloe vera topical cream (Zinc Oxide Diaper Cream) fluticasone propionate 50 2 spray intranasal DAILY 05/06/24 05/06/24 History mcg/actuation nasal spray,suspension fructooligosaccharides-inulin 3 1 ea PO DAILY 05/06/24 05/06/24 History gram/3.8 gram (scoop) oral powder (Prebiotic Inulin-FOS) inulin 2 gram chewable tablet 2 g PO DAILY 05/06/24 05/06/24 History (Fiber Gummies) lansoprazole 30 mg delayed 30 mg PO DAILY 05/06/24 05/06/24 History release,disintegrating tablet (Prevacid SoluTab) magnesium oxide 300 mg PO TID 05/06/24 05/06/24 History multivitamin with minerals-folic 1 tab PO DAILY 05/06/24 05/06/24 History acid 200 mcg chewable tablet (Multivitamin Gummies) omega 1-gpu-rcf-fish oil 1,000 mg 1 cap PO DAILY 05/06/24 05/06/24 History (120 mg-180 mg) capsule (Fish Oil) polyethylene glycol 3350 17 8.5 g PO DAILY 05/06/24 05/06/24 History gram/dose oral powder (Miralax) prednisone 1 mg tablet 3 mg PO DAILY 05/06/24 05/06/24 History Past Med/Surg History Problem List (Updated 05/06/24 @ 18:49 by Celia Davis PA-C) Pneumonia Dyslipidemia Neck muscle spasm Hemiplegia and hemiparesis following cerebral infarction affecting left non- dominant side Hemiplegia and hemiparesis following cerebral infarction affecting right dominant side Pain of right upper extremity Seizure-like activity 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 Dementia Muscle spasms of both lower extremities Spastic hemiparesis History of stroke CAD (coronary artery disease) (Chronic) Acute coronary syndrome (Acute) Hypertension (Chronic) Medical History GERD (gastroesophageal reflux disease) Ischemic cardiomyopathy 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 Depression Non-ST elevation NV (NSTEMI) Cervical post-laminectomy syndrome Stroke due to embolism Surgical History H/O inguinal hernia repair History of cataract surgery S/P CABG x 3 History of tonsillectomy History of vasectomy H/O cervical spine surgery History of appendectomy Family History Father H/O heart disorder Myocardial infarction Mother COPD (chronic obstructive pulmonary disease) Emphysema, unspecified Grandmother (Paternal) H/O heart disorder Grandfather (Maternal) H/O heart disorder Brother Prostate cancer Myocardial infarction Grandfather (Paternal) Myocardial infarction Social History Smoking Status: Never smoker Hx Alcohol Use: No Current Living Situation: Family current occupational status: retired Feels Safe at Home: Yes Assistive Devices: Wheelchair Review of Systems Review of Systems: Limited due to severe aphasia - history obtained from family Physical Exam Physical Exam: General: frail, NAD, expressive aphasia with perseveration on the word "here" HEENT: no scleral icterus, moist oral mucosa Neck: supple, trachea midline Heart: RRR Lungs: diminished BS throughout Abdomen: soft, +BS Extremities: no pedal on left, trace on right Skin: bilateral feet are slightly cool to touch but not cyanotic Neurologic: right hemiparesis and spasticity Results & Data Results & Data Vital Signs (Past 12 Hours) Vital Signs Temp Pulse Pulse Resp BP BP Pulse Ox 05/06/24 14:40 36.8 C 60 20 140/84 99 05/06/24 14:40 98 05/06/24 14:40 36.7 C 60 20 140/84 99 O2 Del Method 05/06/24 14:40 Room Air 05/06/24 14:40 Room Air 05/06/24 14:40 Room Air Laboratory Results Lab Results 05/06/24 05/06/24 Range/Units 14:32 15:41 WBC 19.40 H (4.8-10.8) K/ul RBC 4.94 (4.70-6.10) M/uL Hgb 13.6 L (14.0-18.0) g/dl Hct 43.0 (42.0-52.0) % MCV 87.0 (80.0-100.0) fL MCH 27.5 (25.0-34.0) pg MCHC 31.6 L (32.0-36.0) g/dL RDW Std Deviation 42.8 (36.4-46.3) fL RDW Coeff of Margot 13.6 (11.5-14.5) % Plt Count 243 (130-400) K/uL MPV 11.4 (9.4-12.4) fL Immature Gran % (Auto) 0.7 % Neut % (Auto) 74.8 % Lymph % (Auto) 17.3 % [place] % (Auto) 5.9 % Eos % (Auto) 1.0 % Baso % (Auto) 0.3 % Neut # (Auto) 14.49 H (1.40-6.50) K/uL Lymph # (Auto) 3.36 (1.20-3.40) K/uL [place] # (Auto) 1.15 H (0.11-0.59) K/uL Eos # (Auto) 0.20 (0.00-0.50) K/uL Baso # (Auto) 0.06 (0.00-0.20) K/uL Immature Gran # (Auto) 0.14 (0.01-0.20) K/uL PT 10.6 (9.0-12.0) Seconds INR 1.0 (0.9-1.1) APTT 25 (21-31) Seconds PTT Ratio 0.9 VBG pH 7.34 L (7.36-7.41) VBG pCO2 63 H (38-50) mmHg VBG pO2 30 mmHg VBG HCO3 34 mmol/L VBG O2 Saturation < 60.0 % VBG Base Excess 6.1 mEq/L Sodium 140 (136-145) mmol/L Potassium 4.1 (3.5-5.1) mmol/L Chloride 104 (98-107) mmol/L Carbon Dioxide 31 (21-32) mmol/L Anion Gap 5 (3-11) BUN 18 (6-23) mg/dl Creatinine 0.99 (0.6-1.4) mg/dl Est Cr Clr Drug Dosing 54.9 ml/min Est GFR ( Amer) 83.6 ml/min Est GFR (Non-Af Amer) 72.1 ml/min BUN/Creatinine Ratio 18.2 (10-20) Glucose 57 L (70-99(Fasting)) mg/dl Lactate 1.5 (0.4-2.0) mmol/L Calcium 9.0 (8.6-10.3) mg/dl Magnesium 2.1 (1.7-2.4) mg/dl Total Bilirubin 0.5 (0.2-1.0) mg/dl Direct Bilirubin 0.1 (0-0.2) mg/dl AST 15 (13-39) U/L ALT 11 (7-52) U/L Alkaline Phosphatase 143 H (34-104) U/L Ammonia 18.0 (18-72) umol/L Troponin I High Sens 6.8 (0-20) pg/ml Total Protein 6.7 (6.0-8.3) gm/dl Albumin 3.9 (3.4-5.0) gm/dl Procalcitonin 0.06 (0-0.5) ng/ml Diagnostic Findings Chest X-Ray 05/06/24 15:32 XR chest 1V portable HISTORY: Sepsis COMPARISON: Chest 10/19/2017. FINDINGS: There are low lung volumes. No pneumothorax. No pleural effusions. The cardiac silhouette remains mildly enlarged. No evidence for pulmonary edema. There are poststernotomy changes. No acute fractures. There are patchy bibasilar airspace opacities most pronounced on the left. IMPRESSION: Patchy bibasilar airspace opacities most pronounced on the left. This favors a pneumonia and could be due to prior aspiration. ACT 112: Negative or not required by law. Electronically signed by: Ravi Graham M.D. 05/06/2024 4:[address] 05/06/24 15:33 CT head/brain wo con CLINICAL HISTORY: 78 years-old Male with ams. Acutely altered mental status TECHNIQUE: Multiple axial CT images of the head were obtained without contrast. A dose lowering technique was utilized adhering to the principles of ALARA. CT DOSE: 625.8 mGy.cm COMPARISON: 07/17/2017 FINDINGS: No acute intracranial hemorrhage, midline shift, intracranial mass, hydrocephalus, or abnormal extra-axial collection. Involutional changes with chronic microvascular ischemic disease. There is a large chronic appearing left MCA infarct with encephalomalacia which is new from the prior study. There is asymmetric ex vacuo ventriculomegaly of the left lateral ventricle. The calvarium is intact. Prior bilateral lens repair. The paranasal sinuses, mastoid air cells, and middle ear cavities are clear. IMPRESSION: 1. No acute intracranial abnormality. 2. Large chronic left MCA infarct, new from the 2017 comparison.. ACT 112: Negative or not required by law. The above report was generated using voice recognition software. It may contain grammatical, syntax or spelling errors. Electronically signed by: Will Lucio M.D. 05/06/2024 4:50 PM Supervising Physician Co-Signing Physician Notes Attending addendum: The patient was seen and examined in emergency room in presence of the family members 78-year-old male with prior left MCA stroke with right dense hemiplegia, CAD status post CABG x 3, ischemic cardiomyopathy chronic heart failure hypertension, severe malnutrition and also sees a disorder was presented to ER with potential seizure-like activity and also has been having cough while eating for the last few days He was having some cough without any increasing shortness of breath and no more seizure-like activity since in the emergency On examination Hemodynamically stable Lying in bed and looks ill Chest-bibasilar crackles Heart-S1-S2, regular Abdomen-benign Extremity-trace edema bilaterally [employer] ASSISTANT-significant aphasia, difficulty with swallowing, dense right hemiplegia His admission labs, EKG and imaging studies reviewed Has bibasilar pneumonia with increasing white count Started on intravenous Zosyn Questionable seizure at home will ask for neuroevaluation and continue current medications Has had a long discussion with the family members-they are okay with speech therapy to get and advise about oral food which she wants to continue Will continue with antibiotic for pneumonia and neuro evaluation for possible adjustment of seizure medication Palliative care will be consulted for discharge home with hospice Agree with and take the full responsibility of the assessment and plan as outlined above by MINOO Ace Dr (1) Pneumonia Aspiration pneumonia type: due to vomit Laterality: bilateral Lung location: lower lobe of lung Pneumonia type: aspiration pneumonia Qualified Code(s): J69.0 - Pneumonitis due to inhalation of food and vomit (5) Dementia Dementia behavioral or psychological symptom: unspecified whether behavioral, psychotic, or mood disturbance or anxiety Dementia severity: unspecified severity Dementia type: unspecified type Qualified Code(s): F03.90 - Unspecified dementia, unspecified severity, without behavioral disturbance, psychotic disturbance, mood disturbance, and anxiety (6) CAD (coronary artery disease) Associated angina: without angina Coronary Disease-Associated Artery/Lesion t ype: [place] artery [place] vs. transplanted heart: [place] heart Qualified Code(s): I25.10 - Atherosclerotic heart disease of [place] coronary artery without angina pectoris
--- NOTE | 2024-05-06 17:59 | Electrocardiogram Report ---
Test Reason : Blood Pressure : / mmHG Vent. Rate : 060 BPM Atrial Rate : 060 BPM P-R Int : 184 ms QRS Dur : 096 ms QT Int : 434 ms P-R-T Axes : 063 -63 094 degrees QTc Int : 434 ms Normal sinus rhythm Possible Left atrial enlargement Left anterior fascicular block Minimal voltage criteria for LVH, may be normal variant Anterolateral infarct (cited on or before 15-SEP-2014) Abnormal ECG When compared with ECG of 19-OCT-2017 07:00, Nonspecific T wave abnormality no longer evident in Inferior leads Confirmed by Carlito Guillen ([id number]) on 05/06/2024 5:59:21 PM Referred By: Confirmed By:Gustabo Guillen
--- NOTE | 2024-05-06 18:45 | Emergency Department Note ---
History of Present Illness General Chief complaint: Seizure Stated complaint: Atypical seizure-like activity Time Seen by Provider: 05/06/24 15:27 Source: family History of Present Illness Provider complaint: Illness 78-year-old male with history of stroke and seizure presents emergency department with daughter and at bedside. Daughter and at bedside states that the patient is aphasic and has right-sided hemiparesis status post a stroke a few years ago. They state that earlier today at 1130 the patient was drooling having difficulty breathing and then started vomiting. They stated afterwards the patient was having a blank stare and was not responsive as he usually is. They state that they were concerned the patient might of had another stroke or seizure. Patient does take Keppra for seizures. and family report that the episode lasted 30 minutes. Home Medications Medication Instructions Recorded Confirmed Type Lactobacillus acidophilus 1 1,000 mmu cells feeding tube DAILY 06/26/23 05/01/24 History billion cell capsule acetaminophen 325 mg capsule 325 mg PO QID PRN 06/26/23 05/01/24 History (Tylenol) apixaban 5 mg tablet 5 mg PO BID 06/26/23 05/01/24 History ascorbic acid (vitamin C) 500 mg/5 500 mg feeding tube DAILY 06/26/23 05/01/24 History mL oral syrup bisacodyl 10 mg rectal suppository 10 mg OK DAILY PRN 06/26/23 05/01/24 History docusate sodium 50 mg capsule 50 mg PO DAILY 06/26/23 05/01/24 History (Colace Clear) levothyroxine 50 mcg capsule 50 mcg PO DAILY 06/26/23 05/01/24 History loperamide 2 mg capsule 2 mg PO Q6H PRN 06/26/23 05/01/24 History magnesium hydroxide 2,400 mg/10 mL 10 ml PO DAILY PRN peg tube 06/26/23 05/01/24 History oral suspension (Milk Of Magnesia Concentrated) magnesium oxide 400 mg (241.3 mg 400 mg PO DAILY 06/26/23 05/01/24 History magnesium) tablet melatonin 5 mg capsule mg feeding tube HS 06/26/23 05/01/24 History modafinil 100 mg tablet (Provigil) 100 mg PO DAILY 06/26/23 05/01/24 History pantoprazole 40 mg tablet,delayed 40 mg PO DAILY peg tub 06/26/23 05/01/24 History release (Protonix) sodium Chloride feeding tube BID 06/26/23 05/01/24 History therapeutic multivitamin 5 ml feeding tube DAILY 06/26/23 05/01/24 History zinc acetate 50 mg (zinc) capsule 50 mg PO DAILY 06/26/23 05/01/24 History memantine 5 mg tablet 5 mg PO BID #60 tabs 08/30/23 05/01/24 Rx duloxetine 30 mg capsule,delayed 30 mg PO DAILY 10/16/23 05/01/24 History release gabapentin 100 mg capsule 300 mg PO TID 10/16/23 05/01/24 History baclofen 20 mg tablet 20 mg PO BID PRN spasms #60 tabs 01/02/24 05/01/24 Rx ciprofloxacin HCl 0.3 % eye 1 applic ophthalmic (eye) BID PRN 01/11/24 05/01/24 History ointment duloxetine 30 mg capsule,delayed 30 mg PO DAILY 01/11/24 05/01/24 History release (Cymbalta) levetiracetam 500 mg/5 mL (5 mL) 500 mg (5 mL) PO BID 30 days #300 01/11/24 05/01/24 Rx oral solution mL prednisolone 5 mg tablet 4 mg PO DAILY 01/11/24 05/01/24 History atorvastatin 20 mg tablet (Lipitor) 20 mg PO DAILY 01/16/24 05/01/24 History carvedilol 3.125 mg tablet 6.25 mg PO BID 01/16/24 05/01/24 History nitroglycerin 0.4 mg sublingual 0.4 mg sublingual Q5M PRN 01/16/24 05/01/24 History tablet (Nitrostat) Allergies Allergy/AdvReac Type Severity Reaction Status Date / Time No Known Allergies Allergy Unverified 05/01/24 10:50 Past Med/Surg History Problem List (Updated 05/06/24 @ 18:44 by Celia Davis PA-C) Pneumonia Dyslipidemia Neck muscle spasm Hemiplegia and hemiparesis following cerebral infarction affecting left non- dominant side Hemiplegia and hemiparesis following cerebral infarction affecting right dominant side Pain of right upper extremity Seizure-like activity 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 Dementia Muscle spasms of both lower extremities Spastic hemiparesis History of stroke CAD (coronary artery disease) (Chronic) Acute coronary syndrome (Acute) Hypertension (Chronic) Medical History GERD (gastroesophageal reflux disease) Ischemic cardiomyopathy 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 Depression Non-ST elevation IN (NSTEMI) Cervical post-laminectomy syndrome Stroke due to embolism Surgical History H/O inguinal hernia repair History of cataract surgery S/P CABG x 3 History of tonsillectomy History of vasectomy H/O cervical spine surgery History of appendectomy Family History Father H/O heart disorder Myocardial infarction Mother COPD (chronic obstructive pulmonary disease) Emphysema, unspecified Grandmother (Paternal) H/O heart disorder Grandfather (Maternal) H/O heart disorder Brother Prostate cancer Myocardial infarction Grandfather (Paternal) Myocardial infarction Social History Smoking Status: Never smoker Hx Alcohol Use: No Current Living Situation: Family current occupational status: retired Feels Safe at Home: Yes Assistive Devices: Wheelchair Physical Exam Vital Signs Vital Signs - 24 hr 05/06/24 14:40 05/06/24 14:40 05/06/24 14:40 Temperature 36.7 C 36.8 C Temperature Source Axillary Axillary Pulse Rate 60 Pulse Rate [Right Finger] 60 Pulse Rhythm Regular Pulse Rhythm [Right Finger] Regular Pulse Strength Normal Pulse Strength [Right Finger] Normal Respiratory Rate 20 20 Respiratory Effort / Characteristics Non-Labored Spontaneous Non-Labored Spontaneous Respiratory Depth Normal Normal Respiratory Pattern Regular Regular Blood Pressure 140/84 Blood Pressure [Left Arm] 140/84 Blood Pressure Mean 102 Blood Pressure Mean [Left Arm] 102 Blood Pressure Position Semi-fowlers Blood Pressure Position [Left Arm] Semi-fowlers Pulse Oximetry 99 98 99 Oxygen Delivery Method Room Air Room Air Room Air Sepsis Recent Fever Within 48 Hours No Sepsis New/Unexplained Change in Mental Status N/A Sepsis Action Taken by Nursing No Action Required 05/06/24 14:42 Temperature Temperature Source Pulse Rate 59 L Pulse Rate [Right Finger] Pulse Rhythm Pulse Rhythm [Right Finger] Pulse Strength Pulse Strength [Right Finger] Respiratory Rate Respiratory Effort / Characteristics Respiratory Depth Respiratory Pattern Blood Pressure Blood Pressure [Left Arm] Blood Pressure Mean Blood Pressure Mean [Left Arm] Blood Pressure Position Blood Pressure Position [Left Arm] Pulse Oximetry Oxygen Delivery Method Sepsis Recent Fever Within 48 Hours Sepsis New/Unexplained Change in Mental Status Sepsis Action Taken by Nursing Physical Exam HENT: Exam performed. - Head: Normocephalic and atraumatic. CV: Normal rate, regular rhythm, normal heart sounds and intact distal pulses. There is no peripheral edema. Palpable radial pulses bue. PULM/CHEST: Rhonchi bilaterally. ABDOMEN: Soft nontender. NEURO: Aphasic. Right-sided hemiparesis. Baseline per the family. Course Course 1527: The patient was evaluated in room C8. A complete history and physical exam was performed Cardiac monitoring: An order was placed for continuous cardiac monitoring. The monitor shows a rate of 60 with sinus rhythm interpreted by nd 1700: Vital signs stable. Labs show leukocytosis of 19. Lactic acid within normal limits. Chest x-ray shows left-sided possible aspiration pneumonia. Patient be treated with Zosyn. CT of the head shows no acute stroke or ICH. Patient be admitted to the [facility] hospitalist team. Patient's blood glucose was also low at 57. 1 amp of D50 ordered for the patient. [facility] hospitalist team made aware for the patient. Administered Medications Discontinued Medications Dextrose (Dextrose 50% 50 Ml Syringe) 50 ml IV NOW ONE Stop: 05/06/24 16:57 Last Admin: 05/06/24 17:23 Dose: 50 ml Documented By: JESSICA Piperacillin Sod/Tazobactam Sod (Zosyn) 4.5 gm in 120 mls @ 240 mls/hr IV NOW ONE Stop: 05/06/24 17:25 Last Infusion: 05/06/24 17:59 Dose: Infused Documented By: [facility] Admin: 05/06/24 17:23 Dose: 240 mls/hr Documented By: JESSICA Medical Decision Making Laboratory Data Attestation: I reviewed the patient's lab results. 05/06/24 14:32 05/06/24 14:32 Lab Results 05/06/24 05/06/24 Range/Units 14:32 15:41 WBC 19.40 H (4.8-10.8) K/ul RBC 4.94 (4.70-6.10) M/uL Hgb 13.6 L (14.0-18.0) g/dl Hct 43.0 (42.0-52.0) % MCV 87.0 (80.0-100.0) fL MCH 27.5 (25.0-34.0) pg MCHC 31.6 L (32.0-36.0) g/dL RDW Std Deviation 42.8 (36.4-46.3) fL RDW Coeff of Margot 13.6 (11.5-14.5) % Plt Count 243 (130-400) K/uL MPV 11.4 (9.4-12.4) fL Immature Gran % (Auto) 0.7 % Neut % (Auto) 74.8 % Lymph % (Auto) 17.3 % [place] % (Auto) 5.9 % Eos % (Auto) 1.0 % Baso % (Auto) 0.3 % Neut # (Auto) 14.49 H (1.40-6.50) K/uL Lymph # (Auto) 3.36 (1.20-3.40) K/uL [place] # (Auto) 1.15 H (0.11-0.59) K/uL Eos # (Auto) 0.20 (0.00-0.50) K/uL Baso # (Auto) 0.06 (0.00-0.20) K/uL Immature Gran # (Auto) 0.14 (0.01-0.20) K/uL PT 10.6 (9.0-12.0) Seconds INR 1.0 (0.9-1.1) APTT 25 (21-31) Seconds PTT Ratio 0.9 VBG pH 7.34 L (7.36-7.41) VBG pCO2 63 H (38-50) mmHg VBG pO2 30 mmHg VBG HCO3 34 mmol/L VBG O2 Saturation < 60.0 % VBG Base Excess 6.1 mEq/L Sodium 140 (136-145) mmol/L Potassium 4.1 (3.5-5.1) mmol/L Chloride 104 (98-107) mmol/L Carbon Dioxide 31 (21-32) mmol/L Anion Gap 5 (3-11) BUN 18 (6-23) mg/dl Creatinine 0.99 (0.6-1.4) mg/dl Est Cr Clr Drug Dosing 54.9 ml/min Est GFR ( Amer) 83.6 ml/min Est GFR (Non-Af Amer) 72.1 ml/min BUN/Creatinine Ratio 18.2 (10-20) Glucose 57 L (70-99(Fasting)) mg/dl Lactate 1.5 (0.4-2.0) mmol/L Calcium 9.0 (8.6-10.3) mg/dl Magnesium 2.1 (1.7-2.4) mg/dl Total Bilirubin 0.5 (0.2-1.0) mg/dl Direct Bilirubin 0.1 (0-0.2) mg/dl AST 15 (13-39) U/L ALT 11 (7-52) U/L Alkaline Phosphatase 143 H (34-104) U/L Ammonia 18.0 (18-72) umol/L Troponin I High Sens 6.8 (0-20) pg/ml Total Protein 6.7 (6.0-8.3) gm/dl Albumin 3.9 (3.4-5.0) gm/dl Procalcitonin 0.06 (0-0.5) ng/ml Imaging Data Radiologist's Impression: Chest X-Ray 05/06/24 15:32 XR chest 1V portable HISTORY: Sepsis COMPARISON: Chest 10/19/2017. FINDINGS: There are low lung volumes. No pneumothorax. No pleural effusions. The cardiac silhouette remains mildly enlarged. No evidence for pulmonary edema. There are poststernotomy changes. No acute fractures. There are patchy bibasilar airspace opacities most pronounced on the left. IMPRESSION: Patchy bibasilar airspace opacities most pronounced on the left. This favors a pneumonia and could be due to prior aspiration. ACT 112: Negative or not required by law. Electronically signed by: Ravi Graham M.D. 05/06/2024 4:[address] 05/06/24 15:33 CT head/brain wo con CLINICAL HISTORY: 78 years-old Male with ams. Acutely altered mental status TECHNIQUE: Multiple axial CT images of the head were obtained without contrast. A dose lowering technique was utilized adhering to the principles of ALARA. CT DOSE: 625.8 mGy.cm COMPARISON: 07/17/2017 FINDINGS: No acute intracranial hemorrhage, midline shift, intracranial mass, hydrocephalus, or abnormal extra-axial collection. Involutional changes with chronic microvascular ischemic disease. There is a large chronic appearing left MCA infarct with encephalomalacia which is new from the prior study. There is asymmetric ex vacuo ventriculomegaly of the left lateral ventricle. The calvarium is intact. Prior bilateral lens repair. The paranasal sinuses, mastoid air cells, and middle ear cavities are clear. IMPRESSION: 1. No acute intracranial abnormality. 2. Large chronic left MCA infarct, new from the 2017 comparison.. ACT 112: Negative or not required by law. The above report was generated using voice recognition software. It may contain grammatical, syntax or spelling errors. Electronically signed by: Will Lucio M.D. 05/06/2024 4:50 PM ECG Data Attestation: I personally reviewed and interpreted this ECG as follows: Rate (beats per minute): 60 Rhythm: + normal sinus ECG Intervals/blocks: + Normal QRS, + Normal OK and + Normal QT-c ECG ST segments: + Normal ST segments ECG Findings: + LVH MDM Narrative 1501: The patient was evaluated in room C6. A complete history and physical exam was performed Cardiac monitoring: An order was placed for continuous cardiac monitoring. The monitor shows a rate of 90 with sinus rhythm interpreted by me 1612: Vital signs stable. Labs and imaging within normal limits. Patient states he cannot go home and keep vomiting. [facility]. Impression & Plan Pneumonia, Hypoglycemia Discharge Plan Visit Data Chief Complaint: Seizure Stated Complaint: Atypical seizure-like activity ED Provider: Alejandro Arguelles Discharge Problem: Pneumonia, Hypoglycemia Patient Disposition: Admitted As Inpatient Forms Stand Alone Forms: My [facility] Prescriptions Prescriptions: No Action duloxetine 30 mg capsule,delayed release(DR/EC) 30 mg PO DAILY atorvastatin [Lipitor] 20 mg tablet 20 mg PO DAILY carvedilol 3.125 mg tablet 6.25 mg PO BID Rx Instructions: must administer with a meal/food nitroglycerin [Nitrostat] 0.4 mg tablet, sublingual 0.4 mg sublingual Q5M PRN Rx Instructions: do not exceed 3 doses per episode modafinil [Provigil] 100 mg tablet 100 mg PO DAILY apixaban 5 mg tablet 5 mg PO BID acetaminophen [Tylenol] 325 mg capsule 325 mg PO QID PRN bisacodyl 10 mg suppository 10 mg OK DAILY PRN Colace Clear 50 mg capsule 50 mg PO DAILY Lactobacillus acidophilus 1 billion cell capsule 1,000 mmu cells feeding tube DAILY levothyroxine 50 mcg capsule 50 mcg PO DAILY Patient Comments: peg tube loperamide 2 mg capsule 2 mg PO Q6H PRN magnesium oxide 400 mg (241.3 mg magnesium) tablet 400 mg PO DAILY Patient Comments: peg tube melatonin 5 mg capsule feeding tube HS magnesium hydroxide [Milk Of Magnesia Concentrated] 2,400 mg/10 mL suspension 10 ml PO DAILY PRN (Reason: peg tube) therapeutic multivitamin Liquid 5 ml feeding tube DAILY pantoprazole [Protonix] 40 mg tablet,delayed release (DR/EC) 40 mg PO DAILY sodium Chloride 2 g feeding tube BID ascorbic acid (vitamin C) 500 mg/5 mL syrup 500 mg feeding tube DAILY zinc acetate 50 mg (zinc) capsule 50 mg PO DAILY gabapentin 100 mg capsule 300 mg PO TID ciprofloxacin HCl 0.3 % ointment 1 applic ophthalmic (eye) BID PRN Rx Instructions: start on day 3 of therapy prednisolone 5 mg tablet 4 mg PO DAILY baclofen 20 mg tablet 20 mg PO BID PRN (Reason: spasms) Qty: 60 3RF memantine 5 mg tablet 5 mg PO BID Qty: 60 5RF duloxetine [Cymbalta] 30 mg capsule,delayed release(DR/EC) 30 mg PO DAILY levetiracetam 500 mg/5 mL (5 mL) solution 500 mg PO BID 30 Days Qty: 300 5RF Referrals Referrals: Tara Gonzalez MD [Primary Care Provider] - Discharge Problem: Pneumonia Qualifiers: Pneumonia type: aspiration pneumonia Aspiration pneumonia type: unspecified L aterality: left Lung location: unspecified part of lung Qualified Code(s): J69.0 - Pneumonitis due to inhalation of food and vomit
[2024-05-06] MEDS ORDERED: NITROGLYCERIN SL 0.4 MG/TAB TAB SL PRN (21:40)
[2024-05-06] MEDS ORDERED: BUTT PASTE (ZINC OXIDE 16%) 171 APPLN/57 GM JAR EXT PRN (21:46)
[2024-05-06] MEDS ORDERED: ACETAMINOPHEN SUSP 500 MG/15.6 ML UDP PO PRN (21:52)
[2024-05-06] MEDS: BACLOFEN 20 MG TAB PO SCH (22:31)
[2024-05-06] MEDS: PIPERACILLIN/TAZOBACTAM 4.5 GM in DEXTROSE 5% MINI-B 100 ML IV SCH (22:31)
[2024-05-06] MEDS: carvediloL 6.25 MG TAB PO SCH (22:31)
[2024-05-06] MEDS: MAGNESIUM OXIDE 400 MG TAB PO SCH (22:31)
[2024-05-06] MEDS: MEMANTINE HCL 5 MG TAB PO SCH (22:32)
[2024-05-06] MEDS: APIXABAN 5 MG TABLET PO SCH (22:32)
--- OUTSIDE RECORDS SUMMARY | 2024-05-07 04:55 | External Medical Summary | Summary of Care ---
Author Name Unknown Organization [facility] Address [address] [facility] [place] [address] Phone [phone] Care Team Providers Care Statement Processor Name Role Phone Tara Gonzalez MD Primary Care Provider Reason for Visit * Reason Comments Outpatient Testing Encounter Details Date Type Department Care Team (Late st Contact Info) Description 05/01/2024 12:10 PM EDT Laboratory Laboratory, [facility] [address] [facility] [place] [id number] [facility] [address] [facility] [place] [address] [employer] Research Other*[id number]; PMR (polymyalgia rheumatica) ([facility]) Allergies No known active allergiesdocumented as of this encounter (statuses as of 05/01/2024) Medications Medication Sig Dispensed Refills Start Date End Date Status Multi Vitamin/Minerals Oral Tablet Take 1 Tablet by mouth in the morning. 30 Tablet 04/19/2023 Active Acetaminophen 325 MG Oral Tablet (Tylenol) Take 2 Tablets by mouth every 4 hours as needed for Pain, Moderate. 100 Tablet 04/19/2023 Active Milk of Magnesia Concentrate 2400 MG/10ML Oral Suspension (milk of magnesia (concentrate)) Take 30 ml by mouth as needed 30 mL 04/19/2023 Active Bisacodyl 10 MG Rectal Suppository Administer 1 Suppository into the rectum daily as needed for Constipation. Do not use for more than 1 week. 20 Suppository 1 04/19/2023 Active Fleet Enema 7-19 GM/118ML Rectal Enema Administer 1 Enema into the rectum once. As needed constipation 1 Each 04/19/2023 Active Vitamin C 500 MG Oral Tablet Chewable Take 1 Tablet by mouth in the morning. 30 Tablet 5 04/19/2023 Active Magnesium Oxide (Antacid) 400 MG Oral Tablet Take 350 mg by mouth in the morning and 350 mg before bedtime. Via peg tube. 30 Tablet 04/19/2023 Active Melatonin 5 MG Oral Tablet Disintegrating Take 1 Tablet by mouth at bedtime. 30 Tablet 04/20/2023 Active Loperamide HCl 2 MG Oral Tablet 2 tabs enterally as needed for diarrhea. 30 Tablet 04/20/2023 Active Docusate Sodium 50 MG/5ML Oral Liquid (Colace) Take 5 mL by mouth in the morning. As needed via peg tube. 100 mL 04/20/2023 Active Nystatin PowderIndications:C andidal dermatitis Apply to the folds of the groin and scrotum up to three times a day as needed for yeast 1 Each 3 06/21/2023 Active Prebiotic Inulin-FOS Oral Powder Take by mouth. Active Modafinil 100 MG Oral Tablet (Provigil) Take 1 Tablet by mouth in the morning. 30 Tablet 3 12/07/2023 Active levETIRAcetam 250 MG Oral Tablet (Keppra) 12/29/2023 Active Memantine HCl 5 MG Oral Tablet (Namenda) Take 1 Tablet by mouth in the morning and 1 Tablet before bedtime. Active predniSONE 1 MG Oral Tablet (Deltasone)Indicati ons:PMR (polymyalgia rheumatica) (HCC) Take 4 Tablets by mouth in the morning. 360 Tablet 3 01/01/2024 Active Pantoprazole Sodium 40 MG Oral Tablet Delayed Release (Protonix)Indicatio ns:Gastroesophageal reflux disease without esophagitis TAKE 1 TABLET BY MOUTH IN THE EVENING VIA PEG TUBE 90 Tablet 3 01/01/2024 Active Additional Information Patient not taking.Reported on 02/01/2024 Levothyroxine Sodium 50 MCG Oral Tablet (Levoxyl)Indication s:Hypothyroidism, unspecified type Take 1 Tablet by mouth in the morning. (at least 30 min prior to breakfast or other meds) via peg tube. 90 Tablet 3 01/01/2024 Active Lactobacillus Oral TabletIndications:S evere protein-calorie malnutrition (HCC) Take 1 Tablet by mouth in the morning and 1 Tablet before bedtime. Via peg tube. 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 270 Capsule 01/01/2024 Active Fluticasone Propionate 50 MCG/ACT Nasal Suspension (Flonase)Indication s:PND (post-nasal drip) Administer 2 Sprays into each nostril in the morning. 48 g 01/01/2024 Active Apixaban 5 MG Oral Tablet (Eliquis)Indication s:Mural thrombus of cardiac apex Take 1 Tablet by mouth in the morning and 1 Tablet before bedtime. 180 Tablet 01/01/2024 Active DULoxetine HCl 30 MG Oral Capsule Delayed Release Particles (Cymbalta)Indicatio ns:Current moderate episode of major depressive disorder without prior episode (HCC) Take 1 Capsule by mouth in the morning. Do not cut, crush or chew. 90 Capsule 01/01/2024 Active Carvedilol 6.25 MG Oral Tablet (Coreg)Indications: Atherosclerosis of [place] coronary artery of [place] heart without angina pectoris TAKE ONE TABLET TWICE DAILY (HOLD FOR SBP LESS THAN 90) Via peg tube 180 Tablet 3 01/01/2024 Active Atorvastatin Calcium 20 MG Oral Tablet (Lipitor)Indication s:Atherosclerosis of [place] coronary artery of [place] heart without angina pectoris Take 0.5 Tablets by mouth in the morning. Via peg tube. 45 Tablet 01/01/2024 Active Zinc Acetate 50 MG Oral CapsuleIndications: Severe protein-calorie malnutrition (HCC) Take 1 Tablet by mouth in the morning. Via peg tube. 90 Capsule 01/01/2024 Active Additional Information Patient not taking.Reported on 02/01/2024 Baclofen 20 MG Oral Tablet Take 1 Tablet by mouth in the morning and 1 Tablet at noon and 1 Tablet before bedtime. 01/03/2024 Active Ciprofloxacin HCl 0.3 % Ophthalmic Solution (Ciloxan) INSTILL 1-2 DROPS INTO BOTH EYES WHILE AWAKE FOR 2 DAYS, THEN 1-2 DROPS EVERY 4 HOURS WHILE AWAKE FOR 5 DAYS 10 mL 01/04/2024 Active Additional Information Patient not taking.Reported on 02/01/2024 Nitroglycerin 0.4 MG Sublingual Tablet Sublingual (Nitrostat) as needed 25 Tablet 3 01/04/2024 Active Vitamin D3 50 MCG (2000 UT) Oral Capsule (Cholecalciferol) Take 1 Capsule by mouth in the morning. Active Fish Oil 1000 MG Oral Capsule Take 1 Capsule by mouth in the morning. Active Fiber Adult Gummies 2 GM Oral Tablet Chewable Take by mouth. Active Nystatin [id number] UNIT/GM External CreamIndications:Ca ndidal dermatitis Apply topically to affected area 2 times a day. To affacted area for two weeks. 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 11/30/2022 Hyperlipidemia, unspecified 11/30/2022 Atherosclerosis of [place] co ronary artery of [place] heart without angina pectoris 12/05/2018 Hypertensive heart disease w ith chronic systolic congestive heart failure 05/23/2018 Mural thrombus of cardiac apex 09/05/2017 Ischemic cardiomyopathy 09/05/2017 Chronic systolic heart failure 09/05/2017 History of [place] (myocardial infarction) 02/02/2015 HTN, goal below 140/90 02/02/2015 S/P CABG x 3 02/02/2015 documented as of this encounter (statuses as of 05/01/2024) Resolved Problems Problem Noted Date Diagnosed Date Resolved Date [facility] current use of systemic steroids 01/24/2018 07/12/2019 PMR (polymyalgia rheumatica) 11/23/2017 07/12/2019 HTN, goal below 140/90 09/05/201709/05 S/P angioplasty with stent 02/02/2015 0 02/02/2015 documented as of this encounter (statuses as of 05/01/2024) Immunizations Name Administration Dates Next Due COVID-19 mRNA, LNP-s, No Pre serve, 2-Dose Series (Moderna) 06/10/2022,09/04/2021,12/15/2020,10/30 COVID-19, MRNA-LNP, 23-24, P F, 30 MCG/0.3 mL, 12 YRS AND ABOVE, IM (PFIZER-Comirnaty) 01/04/2024 PPD 02/04/2023 Pneumococcal Conjugate Vacc, 13 Valent (Prevnar) 02/02/2015 Pneumococcal Conjugate Vacci ne, 20-valent (Lkadviv16) 08/28/2022 Pneumococcal Polysaccharide PPV23 (Pneumovax) 06/20/2011 RSV Vac., Bivalent, Perfusio n F, Pf,0.5 Ml (Abrysvo) 10/11/2023 Seasonal Influenza, PF, 6 M & above, IM , (FluLaval or Fluzone) 07/12/2019,07/23/2018,07/24/2017 Seasonal Influenza, Quadriva lent Hd (Fluzone Hd) 08/22/2023 Seasonal Influenza, Quadriva lent, No Preserve, IM 08/19/2016 Seasonal Influenza, Split, I IV3, With Preserve, Inj 08/26/2014,10/01/2013,11/07/2012,11/0 12/2010,08/25/2010,08/21/2009,08/14/20 08 09/01/2012 TD, Preservative Free 08/07/2018 TDAP, Age 7 and older, IM (Adacel) 07/30/2008 Varicella Zoster Vaccine (Adult) 01/09/2013 Zoster Vaccine Recombinant (Shingrix) 06/12/2019 ,01/10/2019 documented as of this encounter Social History Tobacco Use Types Packs/Day Years Used Date Smoking Tobacco: Never Smokeless Tobacco: Never Alcohol Use Standard Drinks/Week Comments Yes 0 (1 standard drink = 0.6 oz pur e alcohol) on occasion PHQ-2 Answer Date Recorded PHQ Adult Total Score 2 10/05/2023 Hunger Vital Sign Answer Date Recorded Within the past 12 months, y ou worried that your food would run out before you got the money to buy more. Never true 02/01/20 24 Within the past 12 months, t he food you bought just didn't last and you didn't have money to get more. Never true 02/01/2024 Childcare Answer Date Recorded Do you feel overwhelmed with taking care of a child, family member or friend? No 02/01/2024 Does your family need help f inding childcare? (Household - for ages 0-17 years) Not on file 02/01/2024 Clothing Answer Date Recorded Have you been unable to get clothing when it was really needed? No 02/01/2024 Is your family able to get c lothes or diapers when needed? (Household - for ages 0-17 years) Not on file 02/01/2024 Personal Safety Answer Date Recorded Do you feel unsafe or have concerns for your saf ety? No 02/01/2024 Do you have concerns for you r family's safety? (Household - for ages 0-17 years) Not on file 02/01/2024 Utilities Answer Date Recorded Do you have trouble paying y our heating, water, or electric bill? No 02/01/2024 Is your family able to pay t he heat, water, or electric bill? (Household - for ages 0-17 years) Not on file 02/01/2024 Does your family have access to good internet? (Household - for ages 0-17 years) Not on file 02/01/2024 Employment Status Answer Date Recorded Are you unemployed or without regular income? No 02/01/2024 Does the household have a re gular source of income? (Household - for ages 0-17 years) Not on file 02/01/2024 Social Connections Answer Date Recorded How often do you feel lonely or isolated from th ose around you? Never 02/01/2024 Financial Resource Strain Answer Date R ecorded Do you have any trouble payi ng for your medications, or do you think you might in the future? No 02/01/2024 Does your family have troubl e paying for medicine? (Household - for ages 0-17 years) Not on file 02/01/2024 Transportation Needs Answer Date Record ed READ ONLY Do you have troubl e getting a ride to medical visits or work? Sometimes True 02/01/2024 Does your family have a hard time getting a ride to doctors visits? (Household - for ages 0-17 years) Not on file 02/01/2024 Has lack of transportation k ept you from medical appointments, meetings, work, or from getting things needed for daily living? Check all that apply. (Adult - for ages 18 years and over) Not on file 02/01/2024 Do you (or your family) have trouble finding or paying for a ride (transportation)? (Household - for ages 0-17 years) Not on file 02/01/2024 Housing Stability Answer Date Recorded Do you currently live in a s helter or have no steady place to sleep at night? No 02/01/2024 READ ONLY Do you think you a re at risk of becoming homeless? No 02/01/2024 Does your family worry about paying for your home or becoming homeless? (Household - for ages 0-17 years) Not on file 0 02/01/2024 Are you homeless or worried that you might be in the future? (Adult - for ages 18 years and over) Not on file Are you (or your family) bradly eless or worried that you might be in the future? (Household - for ages 0-17 years) Not on file Food Insecurity Answer Date Recorded Do you need food for this week? No 02/01/2024 Are you able to get enough f ood for your family? (Household - for ages 0-17 years) Not on file 02/01/2024 Does your family need food t his week? (Household - for ages 0-17 years) Not on file 02/01/2024 Do you always have enough fo od for your family? (Household - for ages 0-17 years) Not on file 02/01/2024 Sex and Gender Information Value Date Recorded Sex Assigned at Male 06/09/2023 4:07 PM EDT Gender Identity Male 06/09/2023 4:07 PM EDT Sexual Orientation Straight 06/09/2023 4: 07 PM EDT Job Start Date Occupation Industry Not on file Not on file Not on file documented as of this encounter Plan of Treatment Upcoming Encounters Date Type Department Care Team (Balta ortiz Contact Info) Description 06/21/2024 12:00 PM EDT Telemedicine Family Practice [facility] [address] [place] [address] Tara [place] MD [address] [place] [address] 08/29/2024 10:00 AM EDT Office Visit Rheumatology [place] [id number] [place] [id number] Tressa Quiroga CRNP [address] [place] [address] Pending Results Name Type Priority Associated Diagnoses Date /Time ERYTHROCYTE SEDIMENTATION RATE (ESR) Lab Routine PMR (polymyalgia rheumatica) ([facility]) 05/01/2024 12:08 PM EDT CRP (INFLAMMATORY MARKER) Lab Routine PMR (polymyalgia rheumatica) ([facility]) 05/01/2024 12:08 PM EDT Scheduled Orders Name Type Priority Associated Diagnoses Orde r Schedule MYCODE SST1 Lab Routine [employer] Research Other*[id number] Ordered: 05/01/2024 MYCODE SST2 Lab Routine [employer] Other*[id number] Ordered: 05/01/2024 Scheduled Procedures Name Priority Associated Diagnoses Date/Ti me COLONOSCOPY FLEXIBLE PROXIMA L DIAGNOSTIC Recall Screening for malignant neoplasm of colon Health Maintenance Due Date Last Done Comments Albumin/Creatinine Ratio 1963 COVID-19 Vaccine ( season) 2024 01/04/2024, 06/10/2022, 09/04/2021, Additional history exists Influenza Vaccine (FLU shot) (#1) 2024 08/22/2023, 07/12/2019, 07/23/2018, Additional history exists Depression Monitoring 10/05/2024 10/05/2023 GFR 12/29/2024 12/30/2023, 08/31, 09/27/2022, Additional history exists TSH 12/29/2024 12/30/2023, 02/27/2002 DTaP,Tdap,and Td Vaccines (3 - Td or Tdap) 08/07/2028 08/07/2018, 07/30/2008 Hepatitis C Screening Completed 11/23/2017 Zoster Vaccines Completed 06/12/2019, 12/28, 01/09/2013 Pneumococcal Vaccine: 65+ Years Completed 08/28/2022, 02/02/2015, 06/20/2011 HPV (Gardasil) Vaccine Aged Out No lo nger eligible based on patient's age to complete this topic Hepatitis B Vaccine Aged Out No longe r eligible based on patient's age to complete this topic MENINGOCOCCAL (MENACTRA/MENVEO) Aged Out No longer eligible based on patient's age to complete this topic documented as of this encounter Medical Devices Not on filedocumented as of this encounter Visit Diagnoses Diagnosis [employer] Research Other*[id number] PMR (polymyalgia rheumatica) ([facility]) Polymyalgia rheumatica documented in this encounter Advance Directives Documents on File Type Date Recorded Patient Tanning Solution Maker Expl anation Power of Cyber Reverse Engineer 04/11/2023 CRISTHIAN Meyer PARENTAL ACCESS REQUEST Advance Directives and Living Will 03/14/2023 ADVANCE DIRECTIVE / LIVING WILL Power of Cyber Reverse Engineer 03/14/2023 POWER OF A TTORNEY DURABLE POA Care Teams Statement Processor Relationship Specialty Start Date End Date Tara [place] MD [address] [place] [id number] PCP - General Internal Medicine 10/05/23 documented as of this encounter
--- OUTSIDE RECORDS SUMMARY | 2024-05-07 04:55 | External Medical Summary ---
Author Name Unknown Address Unknown Organization [id number]:[facility] [address] [place] [address] Laboratory Report Ordering Provider Test Date Status BROOKLYNN GAMEZ 05/01/2024 12:08:22 Final Observation Date Value Abnormality Reference (Units ) Status CRP, low-sensitivity 05/01/2024 12:08:22 <3 <=5 (mg/L) Final Performing Location [facility] - [address] [place] [address]
--- OUTSIDE RECORDS SUMMARY | 2024-05-07 04:55 | External Medical Summary ---
Author Name Unknown Address Unknown Organization K01:[facility] - [address] [place] [address] Laboratory Report Ordering Provider Test Date Status BROOKLYNN GAMEZ 05/01/2024 12:08:22 Final Observation Date Value Abnormality Reference (Units ) Status Erythrocyte sedimentation rate by Photometric method 05/01/2024 12:08:22 11 <20 (mm/hour) Final Performing Location [facility] - [address] [place] [address]
[2024-05-07 07:33] LABS: Appearance Urine Clear (Clear); Bilirubin Urine Negative (Negative); Blood Urine Negative (Negative); Color Urine Yellow; Glucose Urine UA Negative (Negative); Ketones Urine Negative (Negative); Leukocyte Esterase Urine Negative (Negative); Nitrite Urine Negative (Negative); Protein Urine Negative (Negative); Specific Gravity Urine 1.015 (1.000-1.030); Urobilinogen Urine Negative (Negative); pH Urine 7.5 (4.5-7.5)
--- NOTE | 2024-05-07 07:54 | Hospitalist Progress Note ---
Date of Service May 07, 2024 Assessment & Plan (1) Pneumonia: (2) Seizure-like activity: (3) Hemiplegia and hemiparesis following cerebral infarction affecting right dominant side: (4) Hemiplegia and hemiparesis following cerebral infarction affecting left non- dominant side: (5) Dementia: (6) CAD (coronary artery disease): Plan Pt is a 78 y/o male with PMhx significant for prior left MCA presumed cardioembolic stroke currently on Eliquis, Hx of left ventricular thrombus, CAD s/p CABG x 3, ischemic cardiomyopathy, chronic HFrEF, HTN, severe malnutrition, seizures, dementia who presented to the ED after an episode of potential seizure activity at home. Work-up in the ED showed patchy bibasilar opacities with concern for aspiration. Palliative care was consulted and after further discussion, it was decided that the pt would be going home with hospice services. Pneumonia, aspiration Leukocytosis of 19K on admission with chest xray noting concern for aspiration pneumonia No increased oxygen requirement VBG with pH of 7.34, pCO2 63 and HCO3 34 Continue with IV Zosyn Speech consulted, appreciate recs Minced and moist diet Aspiration precautions Per admitting team, family would like to consider potential hospice care, palliative care was consulted for assistance with symptom management and possible hospice. -pt and would like to go home with hospice services Seizures Hx of CVA Per family, pt had a possible seizure day of admission On keppra, liquid 500mg BID Follows with [facility] Neurology, consulted. Recommended the following: - Discontinue levetiracetam. -Initiate Depakote. This will be a better seizure drug and will help mood/behavior better. -Load with 1000 mg IV valproic acid and then initiate 250 mg IV every 8 hours. -Check a trough Depakote level each morning he is in the hospital. I will adjust the dosage accordingly. -Keep memantine, gabapentin, baclofen, and duloxetine the same for now. -Although he seems clinically at baseline, I cannot entirely exclude a small stroke. An MRI would be the next step although I am not certain he could lay flat for an MRI. -I see no indication for an EEG at this time. -could consider physical, occupational, and speech therapy consults -Once discharged, he should follow-up with Dr. Benitez as an outpatient (could see neurology PA 2 to 3 weeks after discharge). Additionally, once made aware of discharge plan of home with hospice services, Neurology was contacted for discharge recs. Dr Buck recommended the following: -valproic acid 500mg liquid, po bid- check trough level in one week Continue to monitor Pt going home with hospice services. Bradycardia Noted on telemetry, HR in 50s occasionally EKG on admission noting left anterior fascicular block with HR 60 at that time Pt on beta keysha Coreg 6.25mg BID Follows with [facility] Cardiology, consider consult for further recs Pt going home with hospice services. Anemia Noted on labs, mild Hgb 13.6 Consider further workup if persistent Pt going home with hospice services. Continue other home meds as ordered DVT prophylaxis: On Eliquis Diet: Regular Dispo: home with hospice in AM Admission and Anticipated Discharge Date Admission Date: May 06, 2024 Subjective pt was seen with at bedside and granddaughter. notes that they have made the decision to go home with hospice. Pt aphasic but alert. Review of Systems Review of Systems: All systems reviewed & are unremarkable except as noted in Subjective Physical Exam Physical Exam: General: Alert. No acute distress Psych: could not be determined Neuro: difficulty with speech and movements HEENT: NC/AT CV: RRR Resp: no increased effort of breathing. Abdomen: Soft Extremities: No edema in lower extremities bilaterally. Results & Data Results & Data Vital Signs (Past 12 Hours) Vital Signs Temp Pulse Pulse Resp BP BP Pulse Ox 05/07/24 07:33 54 L 05/07/24 07:30 36.4 C L 56 L 18 139/78 97 05/07/24 03:00 35.9 C L 70 18 107/70 93 05/06/24 23:07 36.5 C 58 L 14 159/81 H 98 05/06/24 21:53 05/06/24 21:52 57 L 05/06/24 21:47 57 L 05/06/24 21:35 36.9 C 60 18 142/75 H 98 05/06/24 21:03 56 L 18 129/68 97 O2 Del Method 05/07/24 07:33 05/07/24 07:30 Room Air 05/07/24 03:00 Room Air 05/06/24 23:07 Room Air 05/06/24 21:53 Room Air 05/06/24 21:52 05/06/24 21:47 05/06/24 21:35 Room Air 05/06/24 21:03 Room Air (1) Pneumonia Aspiration pneumonia type: due to vomit Laterality: bilateral Lung location: lower lobe of lung Pneumonia type: aspiration pneumonia Qualified Code(s): J69.0 - Pneumonitis due to inhalation of food and vomit (5) Dementia Dementia behavioral or psychological symptom: unspecified whether behavioral, psychotic, or mood disturbance or anxiety Dementia severity: unspecified severity Dementia type: unspecified type Qualified Code(s): F03.90 - Unspecif ied dementia, unspecified severity, without behavioral disturbance, psychotic disturbance, mood disturbance, and anxiety (6) CAD (coronary artery disease) Associated angina: without angina Coronary Disease-Associated Artery/Lesion type: [place] artery [place] vs. transplanted heart: [place] heart Qualified Code(s): I25.10 - Atherosclerotic heart disease of [place] coronary artery without angina pectoris
[2024-05-07] MEDS: MULTIVITAMIN TAB PO SCH (08:34)
[2024-05-07] MEDS: ASCORBIC ACID 500 MG TAB PO SCH (08:35)
[2024-05-07] MEDS: CETIRIZINE HCL 10 MG TABLET PO SCH (08:35)
[2024-05-07] MEDS: CHOLECALCIFEROL 25 MCG (1000 UNITS) TAB PO SCH (08:35)
[2024-05-07] MEDS: LEVOTHYROXINE SODIUM 50 MCG TABLET PO SCH (08:35)
[2024-05-07] MEDS: ATORVASTATIN 20 MG TAB PO SCH (08:35)
[2024-05-07] MEDS: LANSOPRAZOLE 30 MG SOLTAB PO SCH (08:35)
[2024-05-07] MEDS: DULoxetine HCL 30 MG CAP PO SCH (08:36)
[2024-05-07] MEDS: predniSONE 1 MG TAB PO SCH (08:36)
[2024-05-07] MEDS: ZINC SULFATE 220 MG CAPSULE PO SCH (08:36)
[2024-05-07] MEDS: FLUTICASONE PROPIONATE NA SPR 16 GM BTL SCH (08:37)
[2024-05-07] MEDS: modafiniL 100 MG TAB PO SCH (08:41)
[2024-05-07] MEDS: POLYETHYLENE (MIRALAX) 17 GM PACK PO SCH (08:51)
[2024-05-07] MEDS ORDERED: [UNRECOGNIZED DRUG - OTHER] PO SCH (09:00)
[2024-05-07] MEDS ORDERED: INULIN PO SCH (09:00)
[2024-05-07] MEDS ORDERED: NON-FORMULARY MEDICATION (Lactobacillus Acidophilus Tablet,Chewable) PO SCH (09:00)
[2024-05-07] MEDS ORDERED: NON-FORMULARY MEDICATION (Inulin [Fiber Gummies] 2 gram Tablet,Chewable) PO SCH (09:00)
[2024-05-07] MEDS: OMEGA-3 (PURIFIED FISH OIL) 1 GM CAP PO SCH (09:18)
--- NOTE | 2024-05-07 09:19 | Palliative Care Consultation ---
Date of Consultation May 07, 2024 Assessment & Plan (1) Weakness generalized: (2) Altered mental status: Altered mental status type: somnolence Qualified Code(s): R40.0 - Somnolence (3) Muscle spasms of both lower extremities: (4) Dementia: Dementia behavioral or psychological symptom: unspecified whether behavioral, psychotic, or mood disturbance or anxiety Dementia severity: unspecified severity Dementia type: unspecified type Qualified Code(s): F03.90 - Unspecified dementia, unspecified severity, without behavioral disturbance, psychotic disturbance, mood disturbance, and anxiety (5) Pain of right upper extremity: (6) Discussion about advance care planning held with family member: Met with pt, and later, their daughter at bedside for face to face 60min ACP shares they had a family meeting a few months ago with their children, both sons are in [place], dtr is local/lives next door. During that discussion pt made it clear he is not happy with his QOL, he is ready to , and does not want live like this anymore. 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 He has lost most of the things that brought him piero and now apart from some time with grandchildren, he has nothing of real value. They would like options fr focusing on comfort. asks about the difference between palliative med v hospice, which we discussed. They would like home hospice, we agreed on [facility] since they also have a robust child health program which can help their very young grandchildren. (7) Encounter for hospice care discussion: I provided education about the hospice benefit: an interdisciplinary program offered by nurses, nurses aides, social workers, chaplains and a medical insurance biller for patients with a terminal condition and a life expectancy of less than 6 months. This is covered by Medicare at 100%/no out of pocket expense to patient and all meds/supplies needed by patient for the reason they are on hospice are paid for/covered by hospice. The goal is assure quality of life of the patient in their home setting (home, [facility], inpatient hospice setting) by providing symptoms management, psychosocial and spiritual support. However, they cannot offer 24 hours care and if the family is unable to provide that care, they will have to consider personal care with out of pocket cost vs. [facility] placement. We discussed the goals of hospice as a patient service and the goals of care; we discussed EOL trajectories and transitions rola the emotional impact of realizing mortality as a concrete reality from prior abstract considerations. Pt was reassured that no matter where they are along this trajectory, they are not alone - their medical team will remain by their side through their journey. Discussed the pros/cons of accepting help when especially weakened and distressed by pain-which would also help provide relief/decrease caregiver burden/strain. (8) Palliative care by specialist: Discussed Palliative Medicine provides specialized medical care for patients with a serious illness. We offer a focus on quality of life through reduction of symptom burden/more control over their illness, for patients and their family. Palliative Medicine interventions can be given along with curative treatment. I specifically clarified we are not hospice, which is a visiting nurse service that focuses on care delivered at the very end of life. Plan As above Home with hospice Nursing and primary team aware. Thank you for allowing us to participate in the ongoing care of this patient. Please page with any additional concerns. Lyndsay Kramer DNP Director, Palliative Medicine History of Present Illness Reason for Consultation: possible hospice, assist with symptom management Attending Physician: Radha Chris MD History of Present Illness Mr. Boo is a 78-year-old gentleman admitted from home 05/06/2024 with a history of left MCA stroke, hemiaplasia, hemiparesis, seizure disorder, CAD status post triple-vessel CABG, ischemic cardiomyopathy, chronic heart failure with reduced ejection fraction, HTN, hyperlipidemia, and severe malnutrition along with dementia. He has persistent expressive aphasia with perseveration on specific words. He presented to the emergency department from home with an episode what appears to be potential seizure activity. ED evaluation demonstrated a chest x- ray with patchy bibasilar opacities which was worse on the left and therefore aspiration is suspected. 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 PEG was successfully removed following speech therapy then in December of this year he had recurrent admissions for aspiration and required resumption of speech and swallow therapies. He also has spasticity issues that are managed with Botox injections from pain management as well as baclofen however he has had some issues obtaining his baclofen due to national shortage issues. On the admission note of 2023 it is noted "family would like to consider potential hospice care-will consult palliative care for assistance with symptom management and possible hospice." Allergies Allergy/AdvReac Type Severity Reaction Status Date / Time No Known Allergies Allergy Unverified 05/01/24 10:50 Home Medications Medication Instructions Recorded Confirmed Type apixaban 5 mg tablet 5 mg PO BID 06/26/23 05/06/24 History levothyroxine 50 mcg capsule 50 mcg PO DAILY 06/26/23 05/06/24 History modafinil 100 mg tablet (Provigil) 100 mg PO DAILY 06/26/23 05/06/24 History zinc acetate 50 mg (zinc) capsule 50 mg PO DAILY 06/26/23 05/06/24 History memantine 5 mg tablet 5 mg PO BID #60 tabs 08/30/23 05/06/24 Rx duloxetine 30 mg capsule,delayed 30 mg PO DAILY 10/16/23 05/06/24 History release levetiracetam 500 mg/5 mL (5 mL) 500 mg (5 mL) PO BID 30 days #300 01/11/24 05/06/24 Rx oral solution mL atorvastatin 20 mg tablet (Lipitor) 20 mg PO DAILY 01/16/24 05/06/24 History carvedilol 3.125 mg tablet 6.25 mg PO BID 01/16/24 05/06/24 History nitroglycerin 0.4 mg sublingual 0.4 mg sublingual Q5M PRN Chest 01/16/24 05/06/24 History tablet (Nitrostat) Pain Lactobacillus acidophilus 1 tab PO DAILY 05/06/24 05/06/24 History acetaminophen 500 mg/15 mL oral 1,000 mg PO Q6H PRN Pain 05/06/24 05/06/24 History liquid ascorbic acid (vitamin C) 500 mg 500 mg PO DAILY 05/06/24 05/06/24 History chewable tablet (Vitamin C) baclofen 20 mg tablet 20 mg PO TID spasms 05/06/24 05/06/24 History cetirizine 10 mg chewable tablet 10 mg PO DAILY 05/06/24 05/06/24 History cholecalciferol (vitamin D3) 50 50 mcg PO DAILY 05/06/24 05/06/24 History mcg (2,000 unit) chewable tablet dimethicone 1 %-zinc oxide 10 1 applic topical TID PRN Rash 05/06/24 05/06/24 History %-vit A and D-aloe vera topical cream (Zinc Oxide Diaper Cream) fluticasone propionate 50 2 spray intranasal DAILY 05/06/24 05/06/24 History mcg/actuation nasal spray,suspension fructooligosaccharides-inulin 3 1 ea PO DAILY 05/06/24 05/06/24 History gram/3.8 gram (scoop) oral powder (Prebiotic Inulin-FOS) inulin 2 gram chewable tablet 2 g PO DAILY 05/06/24 05/06/24 History (Fiber Gummies) lansoprazole 30 mg delayed 30 mg PO DAILY 05/06/24 05/06/24 History release,disintegrating tablet (Prevacid SoluTab) magnesium oxide 300 mg PO TID 05/06/24 05/06/24 History multivitamin with minerals-folic 1 tab PO DAILY 05/06/24 05/06/24 History acid 200 mcg chewable tablet (Multivitamin Gummies) omega 6-ltd-xgg-fish oil 1,000 mg 1 cap PO DAILY 05/06/24 05/06/24 History (120 mg-180 mg) capsule (Fish Oil) polyethylene glycol 3350 17 8.5 g PO DAILY 05/06/24 05/06/24 History gram/dose oral powder (Miralax) prednisone 1 mg tablet 3 mg PO DAILY 05/06/24 05/06/24 History Patient History Medical History GERD (gastroesophageal reflux disease) Ischemic cardiomyopathy 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 Depression Non-ST elevation [place] (NSTEMI) Cervical post-laminectomy syndrome Stroke due to embolism Surgical History H/O inguinal hernia repair History of cataract surgery S/P CABG x 3 History of tonsillectomy History of vasectomy H/O cervical spine surgery History of appendectomy Family History Father H/O heart disorder Myocardial infarction Mother COPD (chronic obstructive pulmonary disease) Emphysema, unspecified Grandmother (Paternal) H/O heart disorder Grandfather (Maternal) H/O heart disorder Brother Prostate cancer Myocardial infarction Grandfather (Paternal) Myocardial infarction Social History Smoking Status: Never smoker Hx Alcohol Use: No Hx Substance Use: No Preferred Language: Lithuanian Communication Ability: Impaired Communication Ability Comment: per this is patients baseline Nylon Operator Required: No Beliefs That Will Affect Care: None Current Living Situation: Spouse current occupational status: retired current occupation: Retired age 54 as a [employer] Feels Safe at Home: Yes Assistive Devices: Hospital Bed and Wheelchair Review of Systems Review of Systems: Unobtainable due to cognitive status Physical Exam Physical Exam: General: frail, NAD, garbled speech, cachectic Bitemp wasting, perrla. EOMIs Mucosa pink, dentition fair Neck supple, trachea midline, no stridor S1S2 Diminished bilat, faint crackles left lower Scaphoid abdomen, BS diminished No BLE edema, generalized weakness, right hemiplegia and hemiparesis Skin pale, cool Right hemiparesis and spasticity Results & Data Vital Signs (Past 12 Hours) Vital Signs Temp Pulse Pulse Resp BP Pulse Ox O2 Del Method 05/07/24 07:33 54 L 05/07/24 07:30 36.4 C L 56 L 18 139/78 97 Room Air 05/07/24 03:00 35.9 C L 70 18 107/70 93 Room Air 05/06/24 23:07 36.5 C 58 L 14 159/81 H 98 Room Air 05/06/24 21:53 Room Air 05/06/24 21:52 57 L 05/06/24 21:47 57 L 05/06/24 21:35 36.9 C 60 18 142/75 H 98 Room Air Laboratory Results 05/07/24 05/06/24 05/06/24 Range/Units 06:05 21:50 19:11 WBC (4.8-10.8) K/ul RBC (4.70-6.10) M/uL Hgb (14.0-18.0) g/dl Hct (42.0-52.0) % MCV (80.0-100.0) fL MCH (25.0-34.0) pg MCHC (32.0-36.0) g/dL RDW Std Deviation (36.4-46.3) fL RDW Coeff of Margot (11.5-14.5) % Plt Count (130-400) K/uL MPV (9.4-12.4) fL Immature Gran % (Auto) % Neut % (Auto) % Lymph % (Auto) % [place] % (Auto) % Eos % (Auto) % Baso % (Auto) % Neut # (Auto) (1.40-6.50) K/uL Lymph # (Auto) (1.20-3.40) K/uL [place] # (Auto) (0.11-0.59) K/uL Eos # (Auto) (0.00-0.50) K/uL Baso # (Auto) (0.00-0.20) K/uL Immature Gran # (Auto) (0.01-0.20) K/uL PT (9.0-12.0) Seconds INR (0.9-1.1) APTT (21-31) Seconds PTT Ratio VBG pH (7.36-7.41) VBG pCO2 (38-50) mmHg VBG pO2 mmHg VBG HCO3 mmol/L VBG O2 Saturation % VBG Base Excess mEq/L Sodium (136-145) mmol/L Potassium (3.5-5.1) mmol/L Chloride (98-107) mmol/L Carbon Dioxide (21-32) mmol/L Anion Gap (3-11) BUN (6-23) mg/dl Creatinine (0.6-1.4) mg/dl Est Cr Clr Drug Dosing ml/min Est GFR ( Amer) ml/min Est GFR (Non-Af Amer) ml/min BUN/Creatinine Ratio (10-20) Glucose (70-99(Fasting)) mg/dl POC Glucose 82 101 H (70-99) mg/dl Lactate (0.4-2.0) mmol/L Calcium (8.6-10.3) mg/dl Magnesium (1.7-2.4) mg/dl Total Bilirubin (0.2-1.0) mg/dl Direct Bilirubin (0-0.2) mg/dl AST (13-39) U/L ALT (7-52) U/L Alkaline Phosphatase (34-104) U/L Ammonia (18-72) umol/L Troponin I High Sens (0-20) pg/ml Total Protein (6.0-8.3) gm/dl Albumin (3.4-5.0) gm/dl Procalcitonin (0-0.5) ng/ml Urine Color Yellow Urine Appearance Clear (Clear) Urine pH 7.5 (4.5-7.5) Ur Specific [place] 1.015 (1.000-1.030) Urine Protein Negative (Negative) Urine Glucose (UA) Negative (Negative) Urine Ketones Negative (Negative) Urine Blood Negative (Negative) Urine Nitrite Negative (Negative) Urine Bilirubin Negative (Negative) Urine Urobilinogen Negative (Negative) Ur Leukocyte Esterase Negative (Negative) Levetiracetam 05/06/24 05/06/24 Range/Units 15:41 14:32 WBC 19.40 H (4.8-10.8) K/ul RBC 4.94 (4.70-6.10) M/uL Hgb 13.6 L (14.0-18.0) g/dl Hct 43.0 (42.0-52.0) % MCV 87.0 (80.0-100.0) fL MCH 27.5 (25.0-34.0) pg MCHC 31.6 L (32.0-36.0) g/dL RDW Std Deviation 42.8 (36.4-46.3) fL RDW Coeff of Margot 13.6 (11.5-14.5) % Plt Count 243 (130-400) K/uL MPV 11.4 (9.4-12.4) fL Immature Gran % (Auto) 0.7 % Neut % (Auto) 74.8 % Lymph % (Auto) 17.3 % [place] % (Auto) 5.9 % Eos % (Auto) 1.0 % Baso % (Auto) 0.3 % Neut # (Auto) 14.49 H (1.40-6.50) K/uL Lymph # (Auto) 3.36 (1.20-3.40) K/uL [place] # (Auto) 1.15 H (0.11-0.59) K/uL Eos # (Auto) 0.20 (0.00-0.50) K/uL Baso # (Auto) 0.06 (0.00-0.20) K/uL Immature Gran # (Auto) 0.14 (0.01-0.20) K/uL PT 10.6 (9.0-12.0) Seconds INR 1.0 (0.9-1.1) APTT 25 (21-31) Seconds PTT Ratio 0.9 VBG pH 7.34 L (7.36-7.41) VBG pCO2 63 H (38-50) mmHg VBG pO2 30 mmHg VBG HCO3 34 mmol/L VBG O2 Saturation < 60.0 % VBG Base Excess 6.1 mEq/L Sodium 140 (136-145) mmol/L Potassium 4.1 (3.5-5.1) mmol/L Chloride 104 (98-107) mmol/L Carbon Dioxide 31 (21-32) mmol/L Anion Gap 5 (3-11) BUN 18 (6-23) mg/dl Creatinine 0.99 (0.6-1.4) mg/dl Est Cr Clr Drug Dosing 54.9 ml/min Est GFR ( Amer) 83.6 ml/min Est GFR (Non-Af Amer) 72.1 ml/min BUN/Creatinine Ratio 18.2 (10-20) Glucose 57 L (70-99(Fasting)) mg/dl POC Glucose (70-99) mg/dl Lactate 1.5 (0.4-2.0) mmol/L Calcium 9.0 (8.6-10.3) mg/dl Magnesium 2.1 (1.7-2.4) mg/dl Total Bilirubin 0.5 (0.2-1.0) mg/dl Direct Bilirubin 0.1 (0-0.2) mg/dl AST 15 (13-39) U/L ALT 11 (7-52) U/L Alkaline Phosphatase 143 H (34-104) U/L Ammonia 18.0 (18-72) umol/L Troponin I High Sens 6.8 (0-20) pg/ml Total Protein 6.7 (6.0-8.3) gm/dl Albumin 3.9 (3.4-5.0) gm/dl Procalcitonin 0.06 (0-0.5) ng/ml Urine Color Urine Appearance (Clear) Urine pH (4.5-7.5) Ur Specific [place] (1.000-1.030) Urine Protein (Negative) Urine Glucose (UA) (Negative) Urine Ketones (Negative) Urine Blood (Negative) Urine Nitrite (Negative) Urine Bilirubin (Negative) Urine Urobilinogen (Negative) Ur Leukocyte Esterase (Negative) Levetiracetam Pending Diagnostic Findings Chest X-Ray 05/06/24 15:32 XR chest 1V portable HISTORY: Sepsis COMPARISON: Chest 10/19/2017. FINDINGS: There are low lung volumes. No pneumothorax. No pleural effusions. The cardiac silhouette remains mildly enlarged. No evidence for pulmonary edema. There are poststernotomy changes. No acute fractures. There are patchy bibasilar airspace opacities most pronounced on the left. IMPRESSION: Patchy bibasilar airspace opacities most pronounced on the left. This favors a pneumonia and could be due to prior aspiration. ACT 112: Negative or not required by law. Electronically signed by: Ravi Graham M.D. 05/06/2024 4:[address] 05/06/24 15:33 CT head/brain wo con CLINICAL HISTORY: 78 years-old Male with ams. Acutely altered mental status TECHNIQUE: Multiple axial CT images of the head were obtained without contrast. A dose lowering technique was utilized adhering to the principles of ALARA. CT DOSE: 625.8 mGy.cm COMPARISON: 07/17/2017 FINDINGS: No acute intracranial hemorrhage, midline shift, intracranial mass, hydrocephalus, or abnormal extra-axial collection. Involutional changes with chronic microvascular ischemic disease. There is a large chronic appearing left MCA infarct with encephalomalacia which is new from the prior study. There is asymmetric ex vacuo ventriculomegaly of the left lateral ventricle. The calvarium is intact. Prior bilateral lens repair. The paranasal sinuses, mastoid air cells, and middle ear cavities are clear. IMPRESSION: 1. No acute intracranial abnormality. 2. Large chronic left MCA infarct, new from the 2017 comparison.. ACT 112: Negative or not required by law. The above report was generated using voice recognition software. It may contain grammatical, syntax or spelling errors. Electronically signed by: Will Lucio M.D. 05/06/2024 4:50 PM PG Care Time/CCT Total # of Minutes Spent Total Time Spent with Patient: Total time spent is greater than 50% in coordination of care (as documented) at patient's floor/unit and/or counseling patient: I spent 120 minutes overall addressing this case: 15 min in medical data review/discussion with referring provider(s) and/or preparation for the visit 15 min in direct interaction with the patient/exam 60 min in Advance Care Planning/Goals of Care discussions as detailed above in note (must be >16min) 15 min in subsequent review and synthesis of assessment and plan 15 min communicating with other providers regarding the patient's case: nursing care mgt primary team Advanced Care Planning 62691 Advanced Care Planning 30 Min 16029 Advanced Care Planning Additional 30 [place] [address] IN/OBS CONSULT LVL 4,60M (25 - SIGNIFICANT, SEPARATELY IDENTIFIABLE ) Patient Type New Medical Decision Making High Complexity Diagnoses Weakness generalized R53.1 Somnolence R40.0 Altered mental status type: somnolence Muscle spasms of both lower extremities M62.838 Dementia, unspecified dementia severity, unspecified dementia type, unspecified whether behavioral, psychotic, or mood disturbance or anxiety F03.90 Dementia behavioral or psychological symptom: unspecified whether behavioral, psychotic, or mood disturbance or anxiety Dementia severity: unspecified severity Dementia type: unspecified type Pain of right upper extremity M79.601 Discussion about advance care planning held with family member Z71.0 Encounter for hospice care discussion Z71.89 Palliative care by specialist Z51.5 Additional Codes Advanced Care Planning - 59415 Advanced Care Planning 30 Min: 91447 Advanced Care Planning 30 Min ([id number]) Advanced Care Planning - 15484 Advanced Care Planning Additional 30 Min: 02052 Advanced Care Planning Additional 30 Min ([id number])
--- NOTE | 2024-05-07 09:51 | Neurology Consultation ---
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 Currently the left leg is contracted and spastic as well due to lack of use. The patient has had seizure-like activity ever since with multiple attempts to diagnose a seizure disorder with EEGs and even a prolonged 72-hour EEG in November of this year. Given some of the changes seen in that EEG as well as his clinical symptoms, a seizure disorder was suspected and he was initiated on levetiracetam. Unfortunately, his is clear that the episodes have been more frequent on the higher dose of levetiracetam the last 3 to 4 months than they had been prior. The patient has chronic pain and spasticity help with Botox, baclofen, gabapentin, and duloxetine. Currently the patient has pneumonia, likely aspiration type Levetiracetam can have behavioral/mood side effects. Clinically, he is at baseline, physically and mentally, according to his who is present at bedside. Recommendations: 1. Discontinue levetiracetam. 2. Initiate Depakote. This will be a better seizure drug and will help mood/behavior better. Load with 1000 mg IV valproic acid and then initiate 250 mg IV every 8 hours. 3. Check a trough Depakote level each morning he is in the hospital. I will adjust the dosage accordingly. 4. Keep memantine, gabapentin, baclofen, and duloxetine the same for now. 5. Although he seems clinically at baseline, I cannot entirely exclude a small stroke. An MRI would be the next step although I am not certain he could lay flat for an MRI. 6. I see no indication for an EEG at this time. 7. could consider physical, occupational, and speech therapy consults 8. Once discharged, he should follow-up with Dr. Benitez as an outpatient (could see neurology PA 2 to 3 weeks after discharge). Overall, I spent a total of 90 minutes with this case including review of records, review of films, direct evaluation the patient at bedside, report generation, and discussion of the case with the patient, , and RN at bedside, as well as Dr. Chris, including differential diagnosis and treatment options. History of Present Illness Reason for Consultation: Patient is a 78-year-old, who I was asked to see at the request of Radha Davis PA-C, for neurologic consultation regarding seizures Requesting Physician: Radha Davis PA-C Attending Physician: Radha Chris MD History of Present Illness History is obtained from the patient's who is present in the room. The patient cannot give any history. This patient has a history of coronary artery disease and ND back in 2013 with a known left ventricular apical thrombus in 2016. Apparently in early 2021, for somewhat unknown reasons, the anticoagulant was stopped. 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 In addition, the patient has a diagnosis of polymyalgia rheumatica followed by rheumatology and he is on low-dose prednisone currently. In August 2022 he had a large left middle cerebral artery stroke likely embolic from the heart. Will cerebral artery was occluded. This resulted in a right homonymous hemianopsia, severe right spastic hemiparesis, and a global aphasia. He has had pain and spasticity in the right side and somewhat in the left leg from lack of mobility. He cannot walk. He was put on anticoagulation which she has been on since. Patient has been receiving Botox for spasticity and pain since the summer 2022. This has helped. He also takes baclofen 20 mg twice a day and gabapentin 300 mg 3 times a day. Patient for saw Dr. Benitez in August 2023. There was concern concern of some underlying dementia and staring spells. Multiple EEGs had been done and have been all negative. Memantine 5 mg twice a day was initiated and he is still on that In November 2023, a 72-hour EEG showed no actual seizure activity although there were some sharply contoured waveforms on the left side. This coupled with his episodes suggested possible seizure activity and levetiracetam 250 mg twice a day was started. There was no change in the frequency of the episodes and in December (the last time he saw Dr. Benitez) levetiracetam was increased to 500 mg twice a day. He is on this dose now. According to the patient's , the patient would get blank staring episodes with the jaw opening lasting up to 15 minutes. He be somewhat tired and less responsive than usual afterwards. Since increasing the levetiracetam to 500 mg twice a day 4 months ago, the patient has gone from having staring episodes once every 2 weeks or more to about once a week (clearly more frequent). He had a significant episode on April 08 where he was unresponsive for up to an hour. The patient has been sleepier than usual over the last 2 weeks. On the morning of May 06 he ate breakfast at 0900 and was pretty much at his baseline. He went out on the porch at 1100 and sometime shortly thereafter he had an episode where his jaw went slack, he was drooling and had decreased breathing. He felt cool and clammy and his nose was running. He was ashen/wood in color. He had a blank stare and apparently he had a left arm twitching and shaking for about 5 minutes. The entire episode lasted about an hour. His noted the left arm flexed and twitching towards the end of the episode. By the time it was over he was very diaphoretic and he vomited once. By 1232 1300 he was mostly back to his baseline. He arrived to the emergency room on May 06 at 1440 with a temperature 36.7, pulse 60, respirate 20, blood pressure 140/84, and O2 saturation 99%. Examination in the emergency room revealed the right hemiparesis. White count was elevated at 19.4 CHEM profile was unremarkable. Ammonia and lactate were normal. Chest x-ray revealed changes of pneumonia and aspiration pneumonia was suspected. Patient was started on Zosyn. CT scan of the head showed the large old left middle cerebral artery territory stroke. There were no acute changes or hemorrhage. I reviewed these films. This morning, the patient is at his baseline and as active and reactive as is usual. Blood pressure is 139/78 and he remains afebrile. Allergies Allergy/AdvReac Type Severity Reaction Status Date / Time No Known Allergies Allergy Unverified 05/01/24 10:50 Home Medications Medication Instructions Recorded Confirmed Type apixaban 5 mg tablet 5 mg PO BID 06/26/23 05/06/24 History levothyroxine 50 mcg capsule 50 mcg PO DAILY 06/26/23 05/06/24 History modafinil 100 mg tablet (Provigil) 100 mg PO DAILY 06/26/23 05/06/24 History zinc acetate 50 mg (zinc) capsule 50 mg PO DAILY 06/26/23 05/06/24 History memantine 5 mg tablet 5 mg PO BID #60 tabs 08/30/23 05/06/24 Rx duloxetine 30 mg capsule,delayed 30 mg PO DAILY 10/16/23 05/06/24 History release levetiracetam 500 mg/5 mL (5 mL) 500 mg (5 mL) PO BID 30 days #300 01/11/24 05/06/24 Rx oral solution mL atorvastatin 20 mg tablet (Lipitor) 20 mg PO DAILY 01/16/24 05/06/24 History carvedilol 3.125 mg tablet 6.25 mg PO BID 01/16/24 05/06/24 History nitroglycerin 0.4 mg sublingual 0.4 mg sublingual Q5M PRN Chest 01/16/24 05/06/24 History tablet (Nitrostat) Pain Lactobacillus acidophilus 1 tab PO DAILY 05/06/24 05/06/24 History acetaminophen 500 mg/15 mL oral 1,000 mg PO Q6H PRN Pain 05/06/24 05/06/24 History liquid ascorbic acid (vitamin C) 500 mg 500 mg PO DAILY 05/06/24 05/06/24 History chewable tablet (Vitamin C) baclofen 20 mg tablet 20 mg PO TID spasms 05/06/24 05/06/24 History cetirizine 10 mg chewable tablet 10 mg PO DAILY 05/06/24 05/06/24 History cholecalciferol (vitamin D3) 50 50 mcg PO DAILY 05/06/24 05/06/24 History mcg (2,000 unit) chewable tablet dimethicone 1 %-zinc oxide 10 1 applic topical TID PRN Rash 05/06/24 05/06/24 History %-vit A and D-aloe vera topical cream (Zinc Oxide Diaper Cream) fluticasone propionate 50 2 spray intranasal DAILY 05/06/24 05/06/24 History mcg/actuation nasal spray,suspension fructooligosaccharides-inulin 3 1 ea PO DAILY 05/06/24 05/06/24 History gram/3.8 gram (scoop) oral powder (Prebiotic Inulin-FOS) inulin 2 gram chewable tablet 2 g PO DAILY 05/06/24 05/06/24 History (Fiber Gummies) lansoprazole 30 mg delayed 30 mg PO DAILY 05/06/24 05/06/24 History release,disintegrating tablet (Prevacid SoluTab) magnesium oxide 300 mg PO TID 05/06/24 05/06/24 History multivitamin with minerals-folic 1 tab PO DAILY 05/06/24 05/06/24 History acid 200 mcg chewable tablet (Multivitamin Gummies) omega 1-ttm-sud-fish oil 1,000 mg 1 cap PO DAILY 05/06/24 05/06/24 History (120 mg-180 mg) capsule (Fish Oil) polyethylene glycol 3350 17 8.5 g PO DAILY 05/06/24 05/06/24 History gram/dose oral powder (Miralax) prednisone 1 mg tablet 3 mg PO DAILY 05/06/24 05/06/24 History Patient History Medical History GERD (gastroesophageal reflux disease) Ischemic cardiomyopathy 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 Depression Non-ST elevation ND (NSTEMI) Cervical post-laminectomy syndrome Stroke due to embolism Surgical History H/O inguinal hernia repair History of cataract surgery S/P CABG x 3 History of tonsillectomy History of vasectomy H/O cervical spine surgery History of appendectomy Family History Father H/O heart disorder Myocardial infarction Mother COPD (chronic obstructive pulmonary disease) Emphysema, unspecified Grandmother (Paternal) H/O heart disorder Grandfather (Maternal) H/O heart disorder Brother Prostate cancer Myocardial infarction Grandfather (Paternal) Myocardial infarction Social History Smoking Status: Never smoker Hx Alcohol Use: No Hx Substance Use: No Preferred Language: Mongolian Communication Ability: Impaired Communication Ability Comment: per this is patients baseline Dispatch Coordinator Required: No Beliefs That Will Affect Care: None Current Living Situation: Spouse current occupational status: retired current occupation: Retired age 54 as a [employer] Feels Safe at Home: Yes Assistive Devices: Glasses and Wheelchair Review of Systems Review of Systems: Review of systems is unobtainable due to the patient's global aphasia Exam (Neuro) Physical Exam: The patient is right-handed. The patient is awake and alert. When spoken to he will make eye contact and attempt to smile at times. His speech consists of perseverating on the word "here". He will repeat this multiple times as if he is trying to communicate. He does not follow one-step commands for me today. upils are 4 mm bilaterally and reactive to light. Extraocular eye muscles are intact without nystagmus. Visual acuity and visual nicholson seem normal grossly to confrontation. There are no deficits to sensation in the face in all 3 distributions of the fifth cranial nerve bilaterally. Corneal reflexes are positive bilaterally. There is a facial droop at the corner of mouth on the left. It does move some with involuntary smile. Hearing seems intact grossly to voice and finger rub bilaterally. Palate moves well without asymmetry. There is normal sternocleidomastoid and trapezius strength bilaterally. Tongue is midline with good strength bilaterally. Neck has a full range of motion without discomfort. There are no cervical bruits bilaterally. There are no cranial or ocular bruits. Heart is without murmur. There is a regular rhythm and rate. Cervical, thoracic, and lumbar spine are nontender to palpation. Gait cannot be tested. He cannot sit up in bed either. I note no resting tremors. There is no postural or action tremor reaching out with the left upper extremity. His left arm does not seem to be ataxic. The patient has 5/5 strength diffusely in the left upper extremity both proximally and distally. He has significant spastic paresis, with contractures at major joints in the right arm and both legs. There is a little more movement at the knee and the left leg than the right Sensory examination reveals quick reactivity and withdraw to sharp lower leg pain. Reflexes are 1/4 in the biceps, triceps, brachioradialis, quadriceps, and Achilles tendons bilaterally. Toes are downgoing with plantar stimulation on the left and upgoing with plantar stimulation on the right. Peripheral pulses are present and of normal quality distally in all 4 limbs. There is no peripheral edema noted in the limbs. Results & Data Vital Signs (Past 12 Hours) Vital Signs Temp Pulse Pulse Resp BP Pulse Ox O2 Del Method 05/07/24 07:33 54 L 05/07/24 07:30 36.4 C L 56 L 18 139/78 97 Room Air 05/07/24 03:00 35.9 C L 70 18 107/70 93 Room Air 05/06/24 23:07 36.5 C 58 L 14 159/81 H 98 Room Air 05/06/24 21:53 Room Air 05/06/24 21:52 57 L 05/06/24 21:47 57 L 05/06/24 21:35 36.9 C 60 18 142/75 H 98 Room Air PG Care Time/CCT Total # of Minutes Spent Total Time Spent with Patient: Total time spent is greater than 50% in coordination of care (as documented) at patient's floor/unit and/or counseling patient: Coding Level of Care Code 23564 INT INP/OBS CARE 375MIN Diagnoses Seizure-like activity R56.9 Hemiplegia and hemiparesis following cerebral infarction affecting right dominant side I69.351 Spastic hemiparesis G81.10 Global aphasia R47.01 Aspiration pneumonia of both lower lobes due to vomit J69.0 Pneumonia type: aspiration pneumonia Aspiration pneumonia type: due to vomit Laterality: bilateral Lung location: lower lobe of lung Muscle spasms of both lower extremities M62.838 Time Spent (min) 90 (5) Pneumonia Pneumonia type: aspiration pneumonia Aspiration pneumonia type: due to vomit Laterality: bilateral Lung location: lower lobe of lung Qualified Code(s): J69.0 - Pneumonitis due to inhalation of food and vomit
[2024-05-07 09:58] LABS: Basophils # (auto) 0.05 K/uL (0.00-0.20); Basophils % (auto) 0.6 %; Eosinophils # (auto) 0.32 K/uL (0.00-0.50); Eosinophils % (auto) 3.6 %; Hematocrit (blood only) 42.5 % (42.0-52.0); Hemoglobin 13.7 g/dl (14.0-18.0); Immature Granulocytes # (auto) 0.03 K/uL (0.01-0.20); Immature Granulocytes % (auto) 0.3 %; Lymphocytes # (auto) 3.11 K/uL (1.20-3.40); Lymphocytes % (auto) 35.3 %; Mean Corpuscular Hemoglobin 27.5 pg (25.0-34.0); Mean Corpuscular Hgb Conc 32.2 g/dL (32.0-36.0); Mean Corpuscular Volume 85.3 fL (80.0-100.0); Mean Platelet Volume 10.5 fL (9.4-12.4); Monocytes # (auto) 0.72 K/uL (0.11-0.59); Monocytes % (auto) 8.2 %; Neutrophils # (auto) 4.58 K/uL (1.40-6.50); Platelet Count 205 K/uL (130-400); RDW Coefficient of Variation 13.4 % (11.5-14.5); RDW Standard Deviation 41.7 fL (36.4-46.3); Red Blood Count 4.98 M/uL (4.70-6.10); White Blood Count 8.81 K/ul (4.8-10.8)
[2024-05-07 10:08] LABS: Albumin Globulin Ratio 1.4 (0.9-2); Albumin Level 3.9 gm/dl (3.4-5.0); BUN Creatinine Ratio 15.1 (10-20); Bilirubin,Total 0.9 mg/dl (0.2-1.0); Calcium 9.4 mg/dl (8.6-10.3); Creatinine Clr Calc Pharmacy 58.5 ml/min; Est GFR (African American) 90.2 ml/min; Est GFR (Non-African American) 77.8 ml/min; Globulin 2.8 gm/dl (2.5-4.0); Magnesium 2.1 mg/dl (1.7-2.4); Potassium 4.5 mmol/L (3.5-5.1); Total Protein 6.7 gm/dl (6.0-8.3)
[2024-05-07] MEDS: VALPROATE SOD 1,000 MG in DEXTROSE 5% 50 ML IV ONE (13:08)
[2024-05-07] MEDS: VALPROATE SOD 250 MG in DEXTROSE 5% 50 ML IV SCH (19:57)
[2024-05-07] MEDS: GABAPENTIN 300 MG CAP PO SCH (20:02)
[2024-05-08 03:16] VITALS: RESP 18
--- NOTE | 2024-05-08 09:43 | Neurology Progress Note ---
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 Currently the left leg is contracted and spastic as well due to lack of use. The patient has had seizure-like activity ever since with multiple attempts to diagnose a seizure disorder with EEGs and even a prolonged 72-hour EEG in November of this year. Given some of the changes seen in that EEG as well as his clinical symptoms, a seizure disorder was suspected and he was initiated on levetiracetam. This spell that he had today is certainly reminiscent of the seizure. His trough Depakote level was low normal. Unfortunately, his is clear that the episodes have been more frequent on the higher dose of levetiracetam the last 3 to 4 months than they had been prior. The patient has chronic pain and spasticity help with Botox, baclofen, gabapentin, and duloxetine. Currently the patient has pneumonia, likely aspiration type Levetiracetam can have behavioral/mood side effects. Clinically, he is at baseline, physically and mentally, according to his who is present at bedside. Recommendations: 1. Continue off levetiracetam 2. 1 extra 500 mg IV load now and continue the 250 mg IV every 8 hours. The IV could be switched to p.o. whenever he goes home 3. Check a trough Depakote level each morning he is in the hospital. I will adjust the dosage accordingly. 4. Keep memantine, gabapentin, baclofen, and duloxetine the same for now. 5. Although he seems clinically at baseline, I cannot entirely exclude a small stroke. An MRI would be the next step although I am not certain he could lay flat for an MRI. 6. I see no indication for an EEG at this time. 7. could consider physical, occupational, and speech therapy consults 8. Once discharged, he should follow-up with Dr. Benitez as an outpatient (could see neurology PA 2 to 3 weeks after discharge). Overall, I spent a total of 35 minutes with this case including review of records, direct evaluation the patient at bedside, report generation, and discussion of the case with the patient, , and RN at bedside, as well as Dr. Chris, including differential diagnosis and treatment options. Admission and Anticipated Discharge Date Admission Date: May 06, 2024 Subjective Patient had a typical event earlier this morning lasting at least 20 to 30 minutes consisting of altered responsiveness, clenching of the fist of the left hand and some rhythmic shaking of the left upper extremity. He turned his head to the left as well. By the time I got to the room (around 0900) the patient was starting to open his eyes, smile, and speak to me. He still had his left fist closed (not clenched) and there was no rhythmic or abnormal movements. His leg was straight. Blood pressure is 107/70 with a pulse in the 50s. He is afebrile. Depakote level was 63 this morning after a 500 mg loading dose and 250 mg IV every every 8 hours Results & Data Vital Signs (Past 12 Hours) Vital Signs Temp Pulse Pulse Resp BP Pulse Ox O2 Del Method 05/08/24 07:27 36.3 C L 54 L 18 107/70 94 Room Air 05/08/24 03:00 36.5 C 63 18 99/68 L 93 Room Air 05/07/24 22:40 36.5 C 77 16 97/60 L 96 Room Air 05/07/24 21:59 75 Exam (Neuro) Physical Exam: He was sleepy at first and then more awake and alert trying to talk to me by repeating "here, here, here", as before. He would make eye contact and smiled. The right side is weak as before He had strength and resistance in the left upper extremity. PG Care Time/CCT Total # of Minutes Spent Total Time Spent with Patient: Total time spent is greater than 50% in coordination of care (as documented) at patient's floor/unit and/or counseling patient: Coding Level of Care Code 44710 SUB INP/OBS CARE 2/35MIN Diagnoses Seizure-like activity R56.9 Hemiplegia and hemiparesis following cerebral infarction affecting right dominant side I69.351 Spastic hemiparesis G81.10 Global aphasia R47.01 Aspiration pneumonia of both lower lobes due to vomit J69.0 Pneumonia type: aspiration pneumonia Aspiration pneumonia type: due to vomit Laterality: bilateral Lung location: lower lobe of lung Muscle spasms of both lower extremities M62.838 Time Spent (min) 35 (5) Pneumonia Pneumonia type: aspiration pneumonia Aspiration pneumonia type: due to vomit Laterality: bilateral Lung location: lower lobe of lung Qualified Code(s): J69.0 - Pneumonitis due to inhalation of food and vomit
[2024-05-08] MEDS: VALPROATE SOD 500 MG in DEXTROSE 5% 50 ML IV ONE (10:12)
[2024-05-08 11:39] VITALS: BP 105/70; PULSE 64; TEMP 98.1; O2SAT 95
--- NOTE | 2024-05-08 12:22 | Discharge Summary ---
Discharge Summary Date of Service May 08, 2024 Principal Dx & Hospital Course #1 = Principal Diagnosis (1) Pneumonia: (2) Seizure-like activity: (3) Hemiplegia and hemiparesis following cerebral infarction affecting right dominant side: (4) Hemiplegia and hemiparesis following cerebral infarction affecting left non- dominant side: (5) Dementia: (6) CAD (coronary artery disease): Plan Pt is a 78 y/o male with PMhx significant for prior left MCA presumed cardioembolic stroke currently on Eliquis, Hx of left ventricular thrombus, CAD s/p CABG x 3, ischemic cardiomyopathy, chronic HFrEF, HTN, severe malnutrition, seizures, dementia who presented to the ED after an episode of potential seizure activity at home. Work-up in the ED showed patchy bibasilar opacities with concern for aspiration. Palliative care was consulted and after further discussion, it was decided that the pt would be going home with hospice services. He was previously treated for the following: Pneumonia, aspiration Leukocytosis of 19K on admission with chest xray noting concern for aspiration pneumonia No increased oxygen requirement VBG with pH of 7.34, pCO2 63 and HCO3 34 Treated with IV Zosyn while hospitalized Speech consulted, appreciate recs Minced and moist diet Aspiration precautions Per admitting team, family would like to consider potential hospice care, palliative care was consulted for assistance with symptom management and possible hospice. -pt and would like to go home with hospice services Po Augmentin for 8 more days on discharge Pt discharged home with hospice care Seizures Hx of CVA Per family, pt had a possible seizure day of admission On keppra, liquid 500mg BID [place] [facility] consulted. Recommended the following: - Discontinue levetiracetam. -Initiate Depakote. This will be a better seizure drug and will help mood/behavior better. -Load with 1000 mg IV valproic acid and then initiate 250 mg IV every 8 hours. (Received an additional loading dose of 500mg IV on day of discharge for possible seizure that AM) -Check a trough Depakote level each morning he is in the hospital. I will adjust the dosage accordingly. -Keep memantine, gabapentin, baclofen, and duloxetine the same for now. -Although he seems clinically at baseline, I cannot entirely exclude a small stroke. An MRI would be the next step although I am not certain he could lay flat for an MRI. -I see no indication for an EEG at this time. -could consider physical, occupational, and speech therapy consults -Once discharged, he should follow-up with Dr. Benitez as an outpatient (could see neurology PA 2 to 3 weeks after discharge). Additionally, once made aware of discharge plan of home with hospice services, Neurology was contacted for discharge recs. Dr Buck recommended the following: -valproic acid 500mg liquid, po bid- check trough level in one week /- episode in AM of clenched hand with shaking per . Received an additional loading dose of 500mg IV on day of discharge for possible seizure. Pt going home with hospice services. Bradycardia Noted on telemetry, HR in 50s occasionally EKG on admission noting left anterior fascicular block with HR 60 at that time Pt on beta keysha Coreg 6.25mg BID Follows with [facility], consider followup as needed Pt going home with hospice services. Anemia Noted on labs, mild Hgb 13 range Stable Pt going home with hospice services. Continue other home meds as ordered Notes For Next Care Provider Per Neurology: check Depakote/valproic acid trough level in one week. Once discharged, he should follow-up with Dr. Benitez as an outpatient (could see neurology PA 2 to 3 weeks after discharge). Discharged home with hospice services Medication Changes From Visit Augmentin 875mg BID x 8 more days valproic acid 500mg po Liquid, BID Admission HPI Per Admitting Provider This is a 78 y/o male with prior left MCA stroke with residual deficits, CAD s/p CABG x 3, ischemic cardiomyopathy, chronic HFrEF, HTN, severe malnutrition, and other history as outlined below who presented to the ED today after an episode of potential seizure activity at home. History was obtained from his and daughter at the bedside due to pt's severe aphasia. His outpatient records including PCP note from December, neurology note from December, and Pain management note from April were reviewed. Pt has a history of large left MCA territory stroke in 2021 due to left MCA thrombus. Residual severe neurologic deficits, right homonymous hemianopsia, severe global aphasia, spastic right hemiplegia, confined to wheelchair. Has exhibited episodes of periodic alteration of awareness and behavioral change, thought likely secondary to focal onset seizures localized to the left cerebral hemisphere. Started on low-dose levetiracetam, which he seemed to be tolerating well as per last neurology note from Dr. Benitez. He has been receiving Botox injections to extremities through pain management to help with the spasticity, which seem to help significantly. Initially after the CVA, he had a PEG tube for swallowing difficulties but this was able to be removed successfully. In December, pt had an episode of choking and probable aspiration that was attributed to missing doses of Baclofen due to supply chain issues or to recent med changes. He has worked with speech therapy at home [facility] Today, pt presents with a possible seizure. This morning he was sleeping then woke up suddenly and started drooling and had rhinorrhea. Then his left arm started twitching and seemed to spasm towards his face, His voice became altered and he was staring into space and not responding. His family noted that he was pale, diaphoretic, and cool to touch. His body was also more stiff and difficult to move than usual. Towards the end of the episode, he vomited liquid material. The episode lasted at least an hour before pt seemed to be back to baseline. When EMS arrived, his pulseox was 85% and his fingers were bluish at the tips. His notes that pt had an episode this morning where he seemed to choke on his phlegm and she thinks may have aspirated then or when he vomited. Over the last few weeks, they have noted that patient has been more tired and sleeping more than usual. He has had more seizure episodes than he was having previously. They have also noted that patient has been having more episodes of coughing with eating recently though no overt choking episodes. Admission Exam Per Admitting Provider General: frail, NAD, expressive aphasia with perseveration on the word "here" HEENT: no scleral icterus, moist oral mucosa Neck: supple, trachea midline Heart: RRR Lungs: diminished BS throughout Abdomen: soft, +BS Extremities: no pedal on left, trace on right Skin: bilateral feet are slightly cool to touch but not cyanotic Neurologic: right hemiparesis and spasticity Discharge Exam General: No acute distress Psych: could not be determined Neuro: difficulty with speech and movements HEENT: NC/AT CV: RRR Resp: no increased effort of breathing. Abdomen: Soft Extremities: No edema in lower extremities bilaterally. Updated Medication List Medication Instructions Recorded Confirmed Type apixaban 5 mg tablet 5 mg PO BID 06/26/23 05/06/24 History levothyroxine 50 mcg capsule 50 mcg PO DAILY 06/26/23 05/06/24 History modafinil 100 mg tablet (Provigil) 100 mg PO DAILY 06/26/23 05/06/24 History zinc acetate 50 mg (zinc) capsule 50 mg PO DAILY 06/26/23 05/06/24 History memantine 5 mg tablet 5 mg PO BID #60 tabs 08/30/23 05/06/24 Rx duloxetine 30 mg capsule,delayed 30 mg PO DAILY 10/16/23 05/06/24 History release levetiracetam 500 mg/5 mL (5 mL) 500 mg (5 mL) PO BID 30 days #300 01/11/24 05/06/24 Rx oral solution mL atorvastatin 20 mg tablet (Lipitor) 20 mg PO DAILY 01/16/24 05/06/24 History carvedilol 3.125 mg tablet 6.25 mg PO BID 01/16/24 05/06/24 History nitroglycerin 0.4 mg sublingual 0.4 mg sublingual Q5M PRN Chest 01/16/24 05/06/24 History tablet (Nitrostat) Pain Lactobacillus acidophilus 1 tab PO DAILY 05/06/24 05/06/24 History acetaminophen 500 mg/15 mL oral 1,000 mg PO Q6H PRN Pain 05/06/24 05/06/24 History liquid ascorbic acid (vitamin C) 500 mg 500 mg PO DAILY 05/06/24 05/06/24 History chewable tablet (Vitamin C) baclofen 20 mg tablet 20 mg PO TID spasms 05/06/24 05/06/24 History cetirizine 10 mg chewable tablet 10 mg PO DAILY 05/06/24 05/06/24 History cholecalciferol (vitamin D3) 50 50 mcg PO DAILY 05/06/24 05/06/24 History mcg (2,000 unit) chewable tablet dimethicone 1 %-zinc oxide 10 1 applic topical TID PRN Rash 05/06/24 05/06/24 History %-vit A and D-aloe vera topical cream (Zinc Oxide Diaper Cream) fluticasone propionate 50 2 spray intranasal DAILY 05/06/24 05/06/24 History mcg/actuation nasal spray,suspension fructooligosaccharides-inulin 3 1 ea PO DAILY 05/06/24 05/06/24 History gram/3.8 gram (scoop) oral powder (Prebiotic Inulin-FOS) inulin 2 gram chewable tablet 2 g PO DAILY 05/06/24 05/06/24 History (Fiber Gummies) lansoprazole 30 mg delayed 30 mg PO DAILY 05/06/24 05/06/24 History release,disintegrating tablet (Prevacid SoluTab) magnesium oxide 300 mg PO TID 05/06/24 05/06/24 History multivitamin with minerals-folic 1 tab PO DAILY 05/06/24 05/06/24 History acid 200 mcg chewable tablet (Multivitamin Gummies) omega [id number]-fish oil 1,000 mg 1 cap PO DAILY 05/06/24 05/06/24 History (120 mg-180 mg) capsule (Fish Oil) polyethylene glycol 3350 17 8.5 g PO DAILY 05/06/24 05/06/24 History gram/dose oral powder (Miralax) prednisone 1 mg tablet 3 mg PO DAILY 05/06/24 05/06/24 History amoxicillin 875 mg-potassium 1 tab PO BID #16 tabs 05/08/24 Rx clavulanate 125 mg tablet valproic acid (as sodium salt) 500 500 mg (10 mL) PO BID #1,000 mL 05/08/24 Rx mg/10 mL (10 mL) oral solution Hospital Stay Data Consultations 05/06/24 17:01 ED Decision to Admit Stat 05/06/24 21:40 Consult Neurology Routine Consult Palliative Care Routine Diagnostic Imagining Performed 05/06/24 15:33 CT head/brain wo con Stat Chest X-Ray 05/06/24 15:32 XR chest 1V portable HISTORY: Sepsis COMPARISON: Chest 10/19/2017. FINDINGS: There are low lung volumes. No pneumothorax. No pleural effusions. The cardiac silhouette remains mildly enlarged. No evidence for pulmonary edema. There are poststernotomy changes. No acute fractures. There are patchy bibasilar airspace opacities most pronounced on the left. IMPRESSION: Patchy bibasilar airspace opacities most pronounced on the left. This favors a pneumonia and could be due to prior aspiration. ACT 112: Negative or not required by law. Electronically signed by: Ravi Graham M.D. 05/06/2024 4:[address] 05/06/24 15:33 CT head/brain wo con CLINICAL HISTORY: 78 years-old Male with ams. Acutely altered mental status TECHNIQUE: Multiple axial CT images of the head were obtained without contrast. A dose lowering technique was utilized adhering to the principles of ALARA. CT DOSE: 625.8 mGy.cm COMPARISON: 07/17/2017 FINDINGS: No acute intracranial hemorrhage, midline shift, intracranial mass, hydrocephalus, or abnormal extra-axial collection. Involutional changes with chronic microvascular ischemic disease. There is a large chronic appearing left MCA infarct with encephalomalacia which is new from the prior study. There is asymmetric ex vacuo ventriculomegaly of the left lateral ventricle. The calvarium is intact. Prior bilateral lens repair. The paranasal sinuses, mastoid air cells, and middle ear cavities are clear. IMPRESSION: 1. No acute intracranial abnormality. 2. Large chronic left MCA infarct, new from the 2017 comparison.. ACT 112: Negative or not required by law. The above report was generated using voice recognition software. It may contain grammatical, syntax or spelling errors. Electronically signed by: Will Lucio M.D. 05/06/2024 4:50 PM Discharge Instructions Given to Patient (Per Discharging Provider) Mr. Boo, You are being discharged home with hospice services. We sent you a prescription for oral valproic acid per the recommendations of Neurology. Please take it as prescribed. In an effort to keep you comfortable, we are also discharging you home with oral antibiotics for an additional 8 days. Please take it as prescribed to help with your pneumonia. Please keep close followup with your hospice provider after discharge. It was a pleasure taking care of you while you were here. Total Time Total Time Spent Total Time Spent (In Minutes): 65
== END 2024-05-08 14:35 | disposition hospice, home (50) | DRG 177 ==
LOC: ED 14:25 → 2S 18:09 → SUATTDRO 18:09 → 2S 21:03